=== PATIENT | male | born 1935 | race Caucasian/White ===

== ENCOUNTER → 2017-09-09 08:46 | Outpatient (CLI) | payer MEDICARE, SELFPAY ==
[2017-09-09 12:10] LABS: Absolute Lymphocyte Count 1.85 X10^3/ul (0.83-4.51); Absolute Neutrophil Count 5.1 X10^3/uL (2.0-7.7); Basophil# 0.04 X10^3/uL; Basophil% 0.5 % (0-1); Eosinophil# 0.96 X10^3/uL; Eosinophils% 11.2 % (0-5); Hematocrit 43.4 % (40-54); Hemoglobin 14.5 g/dl (13.0-16.5); Lymphocyte # 1.85 X10^3/ul (4.0); Lymphocyte % 21.6 % (19-41); Mean Corp Hgb Conc 33.4 g/gl (32-36); Mean Corpuscular Hgb 31.1 pg (27.0-32.0); Mean Corpuscular Volume 93.1 fL (80-94); Mean Platelet Vol. 11.8 fl (6.2-12.0); Monocyte# 0.59 X10^3/uL; Monocyte% 6.9 % (0-10); Neutrophil # 5.11 X10^3/uL (2.7-7.7); Neutrophil % 59.7 % (47-70); Platelet Count 233 K/mm3 (150-450); RBC Distribution Width CV 13.2 % (11.6-14.6); Red Blood Count 4.66 M/mm3 (4.6-6.2); White Blood Count 8.6 K/mm3 (4.4-11.0)
[2017-09-09 12:15] LABS: POSITIVE COUNT NO; POSITIVE DIFFERENTIAL NO; POSITIVE MORPHOLOGY NO
[2017-09-09 12:19] LABS: AST(SGOT) 22 U/L (15-37); Alanine Aminotransfer ALT/SGPT 26 U/L (16-61); Albumin, Serum 3.8 g/dL (3.2-5.0); Alkaline Phosphatase 121 U/L (45-117); Anion Gap 7 (5-15); BUN 43 mg/dL (7-18); BUN/Creat Ratio 22.2 RATIO (10-20); Calcium,Total 9.1 mg/dL (8.5-10.1); Chloride 103 mmol/L (98-107); Creatinine, Serum 1.94 mg/dL (0.70-1.30); EST Glomerular Filtration Rate 35 mL/min (>60); Est Glom Filt Rate - Afr Amer 43 mL/min (>60); Glucose 212 mg/dL (74-106); Potassium 4.4 mmol/L (3.5-5.1); Protein, Total 7.8 g/dL (6.4-8.2); Sodium Level 137 mmol/L (136-145)
== END ==
PROVIDERS: Family Provider Family Medicine; PCP Family Medicine; Visit Provider Family Medicine
DX: I12.9 Hypertensive chronic kidney disease with stage 1 through stage 4 chronic kidney disease, or unspecified chronic kidney disease (principal); N18.9 Chronic kidney disease, unspecified; E11.9 Type 2 diabetes mellitus without complications
CPT/HCPCS: 36415; 80053; 84550; 85025

== ENCOUNTER → 2017-09-23 09:13 | Outpatient (CLI) | payer MEDICARE, SELFPAY ==
[2017-09-23 13:10] LABS: Anion Gap 8 (5-15); BUN 21 mg/dL (7-18); BUN/Creat Ratio 14.3 RATIO (10-20); Calcium,Total 8.9 mg/dL (8.5-10.1); Chloride 104 mmol/L (98-107); Creatinine, Serum 1.47 mg/dL (0.70-1.30); EST Glomerular Filtration Rate 49 mL/min (>60); Est Glom Filt Rate - Afr Amer 59 mL/min (>60); Glucose 271 mg/dL (74-106); Potassium 3.9 mmol/L (3.5-5.1); Sodium Level 138 mmol/L (136-145)
== END ==
PROVIDERS: Family Provider Family Medicine; PCP Family Medicine; Visit Provider Family Medicine
DX: N18.9 Chronic kidney disease, unspecified (principal)
CPT/HCPCS: 36415; 80048

== ENCOUNTER → 2018-03-05 11:06 | Outpatient (CLI) | payer MEDICARE, SELFPAY ==
[2018-03-05 12:27] LABS: Absolute Lymphocyte Count 1.72 X10^3/ul (0.83-4.51); Absolute Neutrophil Count 4.9 X10^3/uL (2.0-7.7); Basophil# 0.03 X10^3/uL; Basophil% 0.4 % (0-1); Eosinophils% 2.8 % (0-5); Hemoglobin 13.8 g/dl (13.0-16.5); Lymphocyte # 1.72 X10^3/ul (4.0); Lymphocyte % 23.8 % (19-41); Mean Corp Hgb Conc 33.7 g/gl (32-36); Mean Corpuscular Hgb 31.4 pg (27.0-32.0); Mean Corpuscular Volume 93.2 fL (80-94); Mean Platelet Vol. 11.7 fl (6.2-12.0); Monocyte# 0.41 X10^3/uL; Monocyte% 5.7 % (0-10); Neutrophil # 4.85 X10^3/uL (2.7-7.7); Neutrophil % 67.2 % (47-70); POSITIVE COUNT NO; POSITIVE DIFFERENTIAL NO; POSITIVE MORPHOLOGY NO; Platelet Count 200 K/mm3 (150-450); RBC Distribution Width CV 12.5 % (11.6-14.6); White Blood Count 7.2 K/mm3 (4.4-11.0)
[2018-03-05 12:39] LABS: Anion Gap 13 (5-15); BUN 24 mg/dL (7-18); BUN/Creat Ratio 17.1 RATIO (10-20); Calcium,Total 8.9 mg/dL (8.5-10.1); Chloride 103 mmol/L (98-107); EST Glomerular Filtration Rate 51 mL/min (>60); Est Glom Filt Rate - Afr Amer 62 mL/min (>60); Glucose 207 mg/dL (74-106); Potassium 3.9 mmol/L (3.5-5.1); Sodium Level 142 mmol/L (136-145)
[2018-03-05 12:46] LABS: Vitamin B12 281 pg/mL (211-911)
== END ==
PROVIDERS: Family Provider Family Medicine; PCP Family Medicine; Visit Provider Family Medicine
DX: I12.9 Hypertensive chronic kidney disease with stage 1 through stage 4 chronic kidney disease, or unspecified chronic kidney disease (principal); E11.22 Type 2 diabetes mellitus with diabetic chronic kidney disease; N18.9 Chronic kidney disease, unspecified; G62.9 Polyneuropathy, unspecified
CPT/HCPCS: 36415; 80048; 82607; 85025

== ENCOUNTER 2018-03-19 08:00 | Outpatient (RCR) | payer MEDICARE, SELFPAY ==
--- NOTE | 2018-03-10 10:30 | HP.PTEVAL_ITS ---
Patient's Visit Information ZOFIA TOLEDO is a 82 year old M referred to Physical Therapy by Ryder Jessica MD with a diagnosis of LACK OF COORDINATION. Date of Evaluation: 03/10/18 Physical Therapist: Guanaco Castelan PT, - Visit Plan Frequency: 2x /Week Duration: 4 Weeks Plan: PROGRESSIVE BALANCE TRAINING,FUNCTIONAL STRENGTHENING,PRE'S BLE,LE FLEXABILITY - Subjective Subjective: This 82 y/o male presents to physical therapy for decrease balance and strength. Patient last episode falling on uneven ground working in yard. Also ,noticed weakness in legs. Denies pain or parathesia/tingling. Patient has difficulty with steps. Patient overall strength affects QOL and housework tasks. Patient seen DR karina PT. Patient works out at gym. SOCIAL: . VOCATION: retired - Objective POSTURE: mild foward posture. GAIT: ambulates with normal mallika reciprocal pattern. STAIRS: alternating with rail. BALANCE: good-. MMT: quads/hams/hip flexion 4-/5,ab4 4-/5,ankle 4/5. FLEXABLITY: hams mod tight,piriforms mod tight. SLS : 5 SECONDS EA LEG - Balance Scores Functional Gait Assessment Score: 18 % Disability: 40.0000 CATSIB Score (Max score 120 seconds): 75 - Goals Goal 1:: Indepoendant with HEP Goal Time Frame: 4-6 Weeks Goal 2:: Improve functional gait assessment score by 5 points to decrease risk of falling Goal Time Frame: 4-6 Weeks Goal 3:: Patient improve CATSIB SCORE BY 5-10 points to decrease risk of falling Goal Time Frame: 4-6 Weeks Goal 4:: Patienty increase strength BLE to 4/5 to imprpove function and strength for ADL'S Goal Time Frame: 4-6 Weeks Goal 5:: Patient to improve LFES SCORE BY 5-10 points ti improve QOL Goal Time Frame: 4-6 Weeks - Rehabilitation Potential Physical Therapy Diagnosis: This patientr has balance and strength deficits impairs ADLS' and risk of falls thus benifit from skilled PT Rehabilitation Potential: Good - Anticipated Interventions Patient/Client Instruction: Educate patient on: Condition, Plan of Care For the Purpose of:: To improve muscle performance and motor function, To improve ability to perform ADL's, To increase tolerance to activity/condition/ position, To improve performance and independence with ADL's, To improve ability of physical actions for home/community/work/leisure, To improve gait and locomotor functions, To increase flexibility/ROM, To improve endurance, To improve balance, To improve safety with gait, To improve ability to perform tasks related to life management Therapeutic Exercise to Include: Strength training, Endurance training, Balance training, Flexibilty training, Gait and locomotor training Comment: LE For the Purpose of:: To improve muscle performance and motor function, To improve ability to perform ADL's, To increase tolerance to activity/condition/ position, To improve performance and independence with ADL's, To improve ability of physical actions for home/community/work/leisure, To improve gait and locomotor functions, To increase flexibility/ROM, To improve endurance, To improve balance, To improve ability to perform tasks related to life management Thank you for the opportunity to evaluate your patient. For Medicare and Medicare HMO plans, please review the plan of care and approve it. It will need to be FAXED BACK to us at [phone] for Medicare purposes. Please let me know if there are questions or concerns regarding this plan of care. Physician Signature: Date:
--- NOTE | 2018-06-21 13:42 | HP.PTDCNRP_ITS ---
HP - Discharge Summary (1) - Patient Information ZOFIA TOLEDO was seen in my office for initial evaluation on 03/10/18. The following Plan of Care was established for this patient: Initial Frequency: 2x /Week Initial Duration: 4 Weeks - Anticipated Interventions Patient/Client Instruction: Educate patient on: Condition, Plan of Care For the Purpose of:: To improve muscle performance and motor function, To improv e ability to perform ADL's, To increase tolerance to activity/condition/position, To improve performance and independence with ADL's, To improve ability of physical actions for home/community/work/leisure, To improve gait and locomotor functions, To increase flexibility/ROM, To improve endurance, To improve balance, To improve safety with gait, To improve ability to perform tasks related to life management Therapeutic Exercise to Include: Strength training, Endurance training, Balance training, Flexibilty training, Gait and locomotor training For the Purpose of:: To improve muscle performance and motor function, To improve ability to perform ADL's, To increase tolerance to activity/condition/position, To improve performance and independence with ADL's, To improve ability of physical actions for home/community/work/leisure, To improve gait and locomotor functions, To increase flexibility/ROM, To improve endurance, To improve balance, To improve ability to perform tasks related to life management This patient was last seen in our office 03/19/18. Pertinent comments regarding their Physical therapy will appear below: This patient seen for PT hip pain focusing on strengthening ,ROM modalities . Patient progressing well decreasing pain for function,thus is d/c HEP. At this point I will be discontinuing this patient from physical therapy. I would be happy to see this patient again in the future if found appropriate by the physician. Thank you! Guanaco Castelan, PT,
== END 2018-03-19 19:00 | disposition home or self-care (01) ==
LOC: PT 08:00
PROVIDERS: Family Provider Family Medicine; PCP Family Medicine; Visit Provider Family Medicine
DX: R27.8 Other lack of coordination (principal)
CPT/HCPCS: 97110; 97162

== ENCOUNTER → 2018-05-31 08:25 | Outpatient (CLI) | payer MEDICARE, SELFPAY ==
[2018-05-31 12:40] LABS: Absolute Lymphocyte Count 1.82 X10^3/ul (0.83-4.51); Absolute Neutrophil Count 5.5 X10^3/uL (2.0-7.7); Basophil# 0.04 X10^3/uL; Basophil% 0.5 % (0-1); Eosinophil# 0.33 X10^3/uL; Hematocrit 41.4 % (40-54); Hemoglobin 13.9 g/dl (13.0-16.5); Lymphocyte # 1.82 X10^3/ul (4.0); Lymphocyte % 22.1 % (19-41); Mean Corp Hgb Conc 33.6 g/gl (32-36); Mean Corpuscular Hgb 31.1 pg (27.0-32.0); Mean Corpuscular Volume 92.6 fL (80-94); Mean Platelet Vol. 11.6 fl (6.2-12.0); Monocyte# 0.57 X10^3/uL; Monocyte% 6.9 % (0-10); Neutrophil # 5.45 X10^3/uL (2.7-7.7); Neutrophil % 66.3 % (47-70); Platelet Count 205 K/mm3 (150-450); RBC Distribution Width CV 12.5 % (11.6-14.6); RBC Distribution Width SD 41.8 fl (35.1-43.9); Red Blood Count 4.47 M/mm3 (4.6-6.2); White Blood Count 8.2 K/mm3 (4.4-11.0)
[2018-05-31 12:54] LABS: POSITIVE COUNT NO; POSITIVE DIFFERENTIAL NO; POSITIVE MORPHOLOGY NO
[2018-05-31 13:02] LABS: Anion Gap 12 (5-15); BUN 28 mg/dL (7-18); BUN/Creat Ratio 20.9 RATIO (10-20); Chloride 104 mmol/L (98-107); Creatinine, Serum 1.34 mg/dL (0.70-1.30); EST Glomerular Filtration Rate 54 mL/min (>60); Est Glom Filt Rate - Afr Amer 65 mL/min (>60); Glucose 194 mg/dL (74-106); Potassium 3.8 mmol/L (3.5-5.1); Sodium Level 140 mmol/L (136-145); Vitamin B12 > 2000 pg/mL (211-911)
== END ==
PROVIDERS: Family Provider Family Medicine; PCP Family Medicine; Visit Provider Family Medicine
DX: E53.8 Deficiency of other specified B group vitamins (principal); I10 Essential (primary) hypertension
CPT/HCPCS: 36415; 80048; 82607; 85025

== ENCOUNTER → 2018-09-13 08:41 | Outpatient (CLI) | payer MEDICARE, SELFPAY ==
[2018-06-29 09:00] VITALS: BMI 22.5
[2018-09-13 12:28] LABS: Absolute Neutrophil Count 6.1 X10^3/uL (2.0-7.7); Basophil# 0.05 X10^3/uL; Basophil% 0.6 % (0-1); Eosinophils% 2.3 % (0-5); Hemoglobin 13.3 g/dl (13.0-16.5); Lymphocyte % 20.3 % (19-41); Mean Corp Hgb Conc 32.4 g/gl (32-36); Mean Corpuscular Hgb 30.9 pg (27.0-32.0); Mean Corpuscular Volume 95.1 fL (80-94); Mean Platelet Vol. 11.7 fl (6.2-12.0); Monocyte# 0.65 X10^3/uL; Monocyte% 7.3 % (0-10); Neutrophil # 6.14 X10^3/uL (2.7-7.7); Neutrophil % 69.4 % (47-70); Platelet Count 199 K/mm3 (150-450); RBC Distribution Width CV 12.9 % (11.6-14.6); RBC Distribution Width SD 43.6 fl (35.1-43.9); Red Blood Count 4.31 M/mm3 (4.6-6.2); White Blood Count 8.9 K/mm3 (4.4-11.0)
[2018-09-13 12:29] LABS: POSITIVE COUNT NO; POSITIVE DIFFERENTIAL NO; POSITIVE MORPHOLOGY NO
[2018-09-13 13:22] LABS: Anion Gap 8 (5-15); BUN 29 mg/dL (7-18); BUN/Creat Ratio 21.6 RATIO (10-20); Chloride 107 mmol/L (98-107); Creatinine, Serum 1.34 mg/dL (0.70-1.30); EST Glomerular Filtration Rate 54 mL/min (>60); Est Glom Filt Rate - Afr Amer 65 mL/min (>60); Glucose 204 mg/dL (74-106); Sodium Level 139 mmol/L (136-145); Thyroid Stim Hormone (TSH) 2.07 uIU/mL (0.358-3.74); Uric Acid 4.3 mg/dL (3.5-7.2)
== END ==
PROVIDERS: Family Provider Family Medicine; PCP Family Medicine; Visit Provider Family Medicine
DX: I12.9 Hypertensive chronic kidney disease with stage 1 through stage 4 chronic kidney disease, or unspecified chronic kidney disease (principal); E11.22 Type 2 diabetes mellitus with diabetic chronic kidney disease; N18.9 Chronic kidney disease, unspecified; M10.9 Gout, unspecified
CPT/HCPCS: 36415; 80048; 84443; 84550; 85025

== ENCOUNTER → 2019-04-04 | Outpatient (CLI) | payer MEDICARE, SELFPAY ==
[2018-06-29 09:00] VITALS: BMI 22.5
[2019-04-04 12:28] LABS: Absolute Neutrophil Count 4.9 X10^3/uL (2.0-7.7); Basophil# 0.05 X10^3/uL; Basophil% 0.7 % (0-1); Eosinophil# 0.22 X10^3/uL; Hematocrit 41.4 % (40-54); Hemoglobin 13.6 g/dL (13.0-16.5); Lymphocyte % 22.8 % (19-41); Mean Corp Hgb Conc 32.9 g/dL (32-36); Mean Corpuscular Hgb 30.9 pg (27.0-32.0); Mean Corpuscular Volume 94.1 fL (80-94); Mean Platelet Vol. 11.5 fl (6.2-12.0); Monocyte# 0.56 X10^3/uL; Monocyte% 7.5 % (0-10); NRBC Flagged by Analyzer 0 % (0-5); Neutrophil # 4.89 X10^3/uL (2.7-7.7); Neutrophil % 65.6 % (47-70); Platelet Count 192 K/mm3 (150-450); RBC Distribution Width CV 12.2 % (11.6-14.6); RBC Distribution Width SD 42.6 fl (35.1-43.9); White Blood Count 7.5 K/mm3 (4.4-11.0)
[2019-04-04 12:52] LABS: Anion Gap 5 (5-15); BUN 29 mg/dL (7-18); BUN/Creat Ratio 21.6 RATIO (10-20); Calcium,Total 9.2 mg/dL (8.5-10.1); Chloride 104 mmol/L (98-107); Creatinine, Serum 1.34 mg/dL (0.70-1.30); EST Glomerular Filtration Rate 54 mL/min (>60); Est Glom Filt Rate - Afr Amer 65 mL/min (>60); Glucose 201 mg/dL (74-106); Sodium Level 136 mmol/L (136-145)
[2019-04-04 12:59] LABS: Vitamin B12 851 pg/mL (211-911)
== END | disposition home or self-care (01) ==
PROVIDERS: Family Provider Family Medicine; PCP Family Medicine; Visit Provider Family Medicine
DX: I10 Essential (primary) hypertension (principal); E53.8 Deficiency of other specified B group vitamins
CPT/HCPCS: 36415; 80048; 82607; 85025

== ENCOUNTER → 2020-03-16 10:05 | Outpatient (CLI) | payer MEDICARE, SELFPAY ==
[2019-06-28 08:05] VITALS: BMI 22.9
[2020-03-16 12:28] LABS: Absolute Lymphocyte Count 2.11 X10^3/uL (0.83-4.51); Absolute Neutrophil Count 6.1 X10^3/uL (2.0-7.7); Basophil# 0.06 X10^3/uL; Basophil% 0.7 % (0-1); Eosinophil# 0.23 X10^3/uL; Eosinophils% 2.5 % (0-5); Hematocrit 39.3 % (40-54); Hemoglobin 12.8 g/dL (13.0-16.5); Lymphocyte # 2.11 X10^3/ul (4.0); Mean Corp Hgb Conc 32.6 g/dL (32-36); Mean Corpuscular Hgb 30.8 pg (27.0-32.0); Mean Corpuscular Volume 94.7 fL (80-94); Mean Platelet Vol. 11.7 fl (6.2-12.0); Monocyte# 0.63 X10^3/uL; Monocyte% 6.9 % (0-10); NRBC Flagged by Analyzer 0 % (0-5); Neutrophil # 6.08 X10^3/uL (2.7-7.7); Neutrophil % 66.2 % (47-70); Platelet Count 227 K/mm3 (150-450); RBC Distribution Width CV 12.6 % (11.6-14.6); RBC Distribution Width SD 43.8 fl (35.1-43.9); Red Blood Count 4.15 M/mm3 (4.6-6.2); White Blood Count 9.2 K/mm3 (4.4-11.0)
[2020-03-16 12:48] LABS: Anion Gap 6 (5-15); BUN 32 mg/dL (7-18); BUN/Creat Ratio 21.3 RATIO (10-20); Calcium,Total 9.3 mg/dL (8.5-10.1); Chloride 103 mmol/L (98-107); EST Glomerular Filtration Rate 47 mL/min (>60); Est Glom Filt Rate - Afr Amer 57 mL/min (>60); Glucose 189 mg/dL (74-106); Sodium Level 136 mmol/L (136-145); Thyroid Stim Hormone (TSH) 2.11 uIU/mL (0.358-3.74); Uric Acid 3.6 mg/dL (3.5-7.2)
[2020-03-16 15:26] LABS: Ferritin 98 ng/mL (26-388); Iron 84 ug/dL (65-175)
== END ==
PROVIDERS: PCP Family Medicine; Visit Provider Family Medicine
DX: E11.22 Type 2 diabetes mellitus with diabetic chronic kidney disease (principal); N18.9 Chronic kidney disease, unspecified; M10.9 Gout, unspecified; D64.9 Anemia, unspecified
CPT/HCPCS: 36415; 80048; 82728; 83540; 84443; 84550; 85025

== ENCOUNTER → 2020-04-27 09:11 | Outpatient (CLI) | payer MEDICARE, SELFPAY ==
[2019-06-28 08:05] VITALS: BMI 22.9
[2020-04-27 12:23] LABS: Absolute Lymphocyte Count 1.68 X10^3/uL (0.83-4.51); Absolute Neutrophil Count 5.7 X10^3/uL (2.0-7.7); Basophil# 0.07 X10^3/uL; Basophil% 0.8 % (0-1); Eosinophil# 0.26 X10^3/uL; Eosinophils% 3.1 % (0-5); Hemoglobin 12.4 g/dL (13.0-16.5); Lymphocyte # 1.68 X10^3/ul (4.0); Lymphocyte % 20.3 % (19-41); Mean Corp Hgb Conc 31.8 g/dL (32-36); Mean Corpuscular Hgb 30.2 pg (27.0-32.0); Mean Corpuscular Volume 94.9 fL (80-94); Mean Platelet Vol. 11.3 fl (6.2-12.0); Monocyte# 0.54 X10^3/uL; Monocyte% 6.5 % (0-10); NRBC Flagged by Analyzer 0 % (0-5); Neutrophil # 5.68 X10^3/uL (2.7-7.7); Neutrophil % 68.9 % (47-70); Platelet Count 221 K/mm3 (150-450); RBC Distribution Width CV 12.7 % (11.6-14.6); RBC Distribution Width SD 44.2 fl (35.1-43.9); Red Blood Count 4.11 M/mm3 (4.6-6.2); White Blood Count 8.3 K/mm3 (4.4-11.0)
[2020-04-27 12:47] LABS: Anion Gap 4 (5-15); BUN 29 mg/dL (7-18); Calcium,Total 8.9 mg/dL (8.5-10.1); Chloride 104 mmol/L (98-107); Creatinine, Serum 1.53 mg/dL (0.70-1.30); EST Glomerular Filtration Rate 46 mL/min (>60); Est Glom Filt Rate - Afr Amer 56 mL/min (>60); Glucose 260 mg/dL (74-106); Iron 66 ug/dL (65-175); Potassium 4.2 mmol/L (3.5-5.1); Sodium Level 136 mmol/L (136-145)
[2020-04-27 12:51] LABS: Vitamin B12 449 pg/mL (211-911)
== END ==
PROVIDERS: PCP Family Medicine; Visit Provider Family Medicine
DX: E53.8 Deficiency of other specified B group vitamins (principal); N18.9 Chronic kidney disease, unspecified; D64.9 Anemia, unspecified
CPT/HCPCS: 36415; 80048; 82607; 83540; 85025

== ENCOUNTER → 2020-08-10 10:32 | Outpatient (CLI) | payer MEDICARE, SELFPAY ==
[2020-08-10 08:01] VITALS: BMI 22.2
[2020-08-10 11:22] LABS: AST(SGOT) 22 U/L (15-37); Alanine Aminotransfer ALT/SGPT 30 U/L (16-61); Albumin, Serum 3.7 g/dL (3.2-5.0); Alkaline Phosphatase 88 U/L (45-117); Cholesterol 119 mg/dL (200); High Density Lipoprotein 41 mg/dL; Protein, Total 7.7 g/dL (6.4-8.2); Triglycerides 109 mg/dL; Very Low Density Lipoprotein 22 mg/dL (5-40)
== END ==
PROVIDERS: PCP Family Medicine; Referring Provider Internal Medicine Cardiovascular Disease; Visit Provider Internal Medicine Cardiovascular Disease
DX: I10 Essential (primary) hypertension (principal); E78.5 Hyperlipidemia, unspecified
CPT/HCPCS: 36415; 80061; 80076

== ENCOUNTER → 2020-10-05 13:38 | Outpatient (CLI) | payer MEDICARE, SELFPAY ==
[2020-08-10 08:01] VITALS: BMI 22.2
[2020-10-05 15:10] LABS: Absolute Lymphocyte Count 2.37 X10^3/uL (0.83-4.51); Absolute Neutrophil Count 5.1 X10^3/uL (2.0-7.7); Basophil# 0.06 X10^3/uL; Basophil% 0.7 % (0-1); Eosinophil# 0.23 X10^3/uL; Eosinophils% 2.8 % (0-5); Hematocrit 38.1 % (40-54); Hemoglobin 12.3 g/dL (13.0-16.5); Lymphocyte # 2.37 X10^3/ul (4.0); Lymphocyte % 28.5 % (19-41); Mean Corp Hgb Conc 32.3 g/dL (32-36); Mean Corpuscular Hgb 30.8 pg (27.0-32.0); Mean Corpuscular Volume 95.3 fL (80-94); Mean Platelet Vol. 10.7 fl (6.2-12.0); Monocyte# 0.52 X10^3/uL; Monocyte% 6.3 % (0-10); NRBC Flagged by Analyzer 0 % (0-5); Neutrophil # 5.11 X10^3/uL (2.7-7.7); Neutrophil % 61.5 % (47-70); Platelet Count 237 K/mm3 (150-450); RBC Distribution Width SD 45.3 fl (35.1-43.9); White Blood Count 8.3 K/mm3 (4.4-11.0)
[2020-10-05 15:36] LABS: AST(SGOT) 34 U/L (15-37); Alanine Aminotransfer ALT/SGPT 52 U/L (16-61); Albumin, Serum 3.6 g/dL (3.2-5.0); Alkaline Phosphatase 98 U/L (45-117); Anion Gap 6 (5-15); BUN 36 mg/dL (7-18); Calcium,Total 8.8 mg/dL (8.5-10.1); Chloride 102 mmol/L (98-107); EST Glomerular Filtration Rate 47 mL/min (>60); Est Glom Filt Rate - Afr Amer 57 mL/min (>60); Globulin 3.7 g/dL (2.2-4.2); Glucose 169 mg/dL (74-106); Protein, Total 7.3 g/dL (6.4-8.2); Sodium Level 137 mmol/L (136-145); Thyroid Stim Hormone (TSH) 1.78 uIU/mL (0.358-3.74); Uric Acid 3.5 mg/dL (3.5-7.2)
== END ==
PROVIDERS: PCP Family Medicine; Referring Provider Family Medicine; Visit Provider Family Medicine
DX: I12.9 Hypertensive chronic kidney disease with stage 1 through stage 4 chronic kidney disease, or unspecified chronic kidney disease (principal); N18.9 Chronic kidney disease, unspecified; M10.9 Gout, unspecified
CPT/HCPCS: 36415; 80053; 84443; 84550; 85025

== ENCOUNTER 2021-08-20 09:49 | Outpatient (CLI) | payer MEDICARE, SELFPAY ==
--- NOTE | 2021-08-20 09:51 | CDU_ITS ---
Reason For Study: Carotid bruit Rt. Velocities/BP Lt. Velocities/BP Prox CCA 115.6/9.7 cm/sec. Prox CCA 99.7/10.2 cm/sec. Mid CCA 93.7/11.5 cm/sec. Mid CCA 90/13.3 cm/sec. Dist CCA 74.1/10.2 cm/sec. Dist CCA 90.1/13.3 cm/sec. Prox ICA 56.4/10.2 cm/sec. Prox ICA 60.5/9 cm/sec. Mid ICA 71.6/12.6 cm/sec. Mid ICA 79/13.9 cm/sec. Dist ICA 59.7/9.1 cm/sec. Dist ICA 91.3/12.6 cm/sec. Rt. ICA/CCA = 0.76. Lt. ICA/CCA = 1.01. Prox ECA 130.1/9.4 cm/sec. Prox ECA 182/74 cm/sec. Lt. Vert. 45.4/12.4 cm/sec. Right Extracranial There is intimal thickening but no significant atherosclerotic plaque noted in the right common carotid artery. There is heterogeneous, irregular atherosclerotic plaque noted in the right internal carotid artery. There is intimal thickening but no significant atherosclerotic plaque noted in the right external carotid artery. Retrograde flow noted in the right vertebral artery. Left Extracranial There is intimal thickening but no significant atherosclerotic plaque noted in the left common carotid artery. There is homogeneous, irregular atherosclerotic plaque noted in the left internal carotid artery. The left internal carotid artery is very tortuous. There is intimal thickening but no significant atherosclerotic plaque noted in the left external carotid artery. Antegrade flow is noted in the left vertebral artery. Procedure Carotid Duplex 27506. This is a Carotid Duplex examination using B-mode, color flow and specral Doppler. Exam performed in department. VL/Carotid Duplex Ultrasound Interpretation Summary Irregular calcific plaque at the proximal right internal carotid artery with le ss than 50% stenosis Less than 50% stenosis right ex internal carotid artery Retrograde flow noted within the right vertebral artery Mild irregular plaque at the proximal left internal carotid artery with less th an 50% stenosis. Tortuosity of the left internal carotid artery noted. Less than 50% stenosis left external carotid artery Antegrade flow left vertebral artery The retrograde flow of the right vertebral artery seems to be new from the prev ious examination of September 11, 2009 Ordering Physician: Leslee Ang Referring Physician: Ryder Jessica Performed By: Carmel Lees RVT
== END 2021-08-20 23:59 | disposition home or self-care (01) ==
LOC: CVS 09:50
PROVIDERS: PCP Family Medicine; Referring Provider Physician Assistant Medical; Visit Provider Physician Assistant Medical
DX: R09.89 Other specified symptoms and signs involving the circulatory and respiratory systems (principal)
CPT/HCPCS: 93880

== ENCOUNTER 2022-02-15 02:59 | Inpatient (IN) | payer MEDICARE, SELFPAY ==
[2022-02-15] VITALS (37 sets, daily range): BP systolic 95–130; BP diastolic 56–83; PULSE 81–104; RESP 12–28; TEMP 35.9–36.7; O2SAT 86–98; BMI 22.4; BMI 21.1
--- NOTE | 2022-02-15 03:05 | EKG12_ITS ---
Test Reason : CP Blood Pressure : / mmHG Vent. Rate : 092 BPM Atrial Rate : 092 BPM P-R Int : 276 ms QRS Dur : 090 ms QT Int : 352 ms P-R-T Axes : 068 076 210 degrees QTc Int : 435 ms Sinus rhythm with 1st degree A-V block ST & T wave abnormality, consider lateral ischemia Abnormal ECG Confirmed by CHRISTEN GONZALEZ, CHANDA ([id number]), brands editor THIEN BUTLER ([id number]) on 02/17/2022 1:12:16 PM Referred By: NAYA Confirmed By:CHANDA VELÁSQUEZ MD
--- NOTE | 2022-02-15 03:24 | CT_ITS ---
STUDY: CTA CHEST REASON FOR EXAM: Male, 86 years old. hypoxia RADIATION DOSAGE (If Supplied By Facility): CTDIvol = ( 15.435 ) mGy, DLP = ( 431.31 ) mGycm TECHNIQUE: The examination was performed with the intravenous administration of IV 100mL Isovue-370. Post-processing of the angiographic images was performed, with multiplanar reformation and 3D reconstruction. Individualized dose optimization techniques were used for this CT. COMPARISON: None. FINDINGS: Normal enhancement of the main pulmonary artery and right and left pulmonary arteries. Normal enhancement of the bilateral peripheral pulmonary arteries. There is no demonstrated pulmonary embolism. Normal thoracic aorta and visualized great vessels. There is no demonstrated aortic dissection. Normal heart and pericardium. Normal mediastinum. Normal hilar regions. Normal visualized trachea and bronchi. The lungs are well expanded. Diffuse interstitial prominence throughout the lungs compatible with pulmonary edema as well as bibasilar patchy airspace disease and small effusions. Normal chest wall structures. Normal osseous structures. Normal visualized upper abdomen. CT/CTA Chest W/WO Contrast IMPRESSION: 1. Negative for pulmonary embolism 2. Diffuse interstitial edema; bibasilar patchy airspace disease and small effusions Electronically Signed: David Downs DO at 5:10 EDT ,
--- NOTE | 2022-02-15 03:27 | EDS_ITS ---
HPI History of Present Illness Chief Complaint: Hypotension Narrative Narrative: Patient is an 86-year-old male with past medical history of hypertension hyperlipidemia and BPH. He states that over the past 3 days he has noticed some intermittent chest discomfort along the left chest with mild/normal activity. He states they will resolve when he rests. He states this evening around midnight he developed the same discomfort but the symptoms have been persistent despite sitting at rest and therefore he comes in for evaluation. [facility] Medical History Diabetes mellitus type II, controlled Essential (primary) hypertension Hyperlipidemia Irritable bowel syndrome Home Medications allopurinol 300 mg tablet 300 mg PO QDAY 06/29/17 [History Last Taken Unknown] aspirin 81 mg tablet,delayed release (Adult Aspirin Regimen) 81 mg PO QDAY 06/29/17 [History Last Taken Unknown] atenolol 50 mg tablet 50 mg PO QDAY 06/29/17 [History Last Taken Unknown] dicyclomine 10 mg capsule 10 mg PO Q8H PRN Pain 06/29/17 [History Last Taken Unknown] tamsulosin 0.4 mg capsule (Flomax) 0.4 mg PO QDAY 06/29/17 [History Last Taken Unknown] sitagliptin 50 mg-metformin 500 mg tablet (Janumet) 1 tab PO BID 06/29/18 [History Last Taken Unknown] finasteride 5 mg tablet 5 mg PO DAILY 08/10/20 [History Last Taken Unknown] latanoprost 0.005 % eye drops 1 drp ophthalmic (eye) DAILY 08/10/20 [History Last Taken Unknown] simvastatin 40 mg tablet 20 mg PO QHS 08/06/21 [History Last Taken Unknown] amlodipine 10 mg tablet 10 mg PO DAILY #90 tabs 08/22/21 [Rx Last Taken Unknown] Allergy/AdvReac Type Severity Reaction Status Date / Time No Known Allergies Allergy Verified 02/15/22 03:07 Family History Mother , age 86 after hip fx, had CVA CVA (cerebral vascular accident) Social History Smoking Status: Never smoker ROS ROS ED Constitutional Constitutional ED: Denies chills or fever(s) ENT ENT ED: Denies sore throat Cardiovascular Cardiovascular: Reports chest pain; Denies palpitations or racing heartbeat Respiratory/Chest Respiratory/Chest: Denies cough or dyspnea Gastrointestinal Gastrointestinal: Denies abdominal pain, diarrhea, nausea or vomiting Genitourinary Genitourinary ED: Denies dysuria Musculoskeletal Musculoskeletal: Reports other Details: Positive leg swelling ; Denies myalgias Integumentary Denies rash Neurologic Neurologic: Denies headache(s) Hematologic/Lymphatic Hematologic/Lymphatic: Denies easy bleeding or easy bruising EXAM Physical Exam Const Vital Signs: 02/15/22 03:01 02/15/22 03:07 02/15/22 03:12 Temperature 97.7 F L Temperature Source Oral Pulse Rate 95 Respiratory Rate 20 H Respiratory Effort Normal Respiratory Depth Respiratory Pattern Normal Blood Pressure 95/68 Blood Pressure Mean 77 Pulse Ox 86 90 Oxygen Delivery Method Room Air Nasal Cannula Oxygen Flow Rate (L/min) 6 Fraction of Inspired Oxygen (FIO2) 02/15/22 03:41 02/15/22 03:33 02/15/22 03:33 Temperature Temperature Source Pulse Rate 91 Respiratory Rate 20 H 20 H Respiratory Effort Normal Respiratory Depth Normal Respiratory Pattern Normal Normal Blood Pressure 95/65 Blood Pressure Mean 75 Pulse Ox 93 90 Oxygen Delivery Method High Flow Nasal Cannula Oxygen Flow Rate (L/min) 15 8 Fraction of Inspired Oxygen (FIO2) 02/15/22 04:31 02/15/22 04:23 02/15/22 05:17 Temperature Temperature Source Pulse Rate 91 94 93 Respiratory Rate 20 H 20 H 16 Respiratory Effort Respiratory Depth Respiratory Pattern Normal Blood Pressure 111/72 119/76 Blood Pressure Mean 85 90 Pulse Ox 96 94 97 Oxygen Delivery Method Bi-pap Bi-pap Oxygen Flow Rate (L/min) Fraction of Inspired Oxygen (FIO2) 70 Positive well nourished and well developed General Appearance ED: well developed HEENT Reports moist mucous membranes Eyes PERRL and EOMs intact bilaterally Neck supple and no JVD Resp normal respiratory effort Resp Narrative: Breath sounds are diminished throughout with diffuse rhonchi present. No nasal flaring retractions tachypnea or accessory muscle use. Patient is able to speak in full sentences without dyspnea Cardio regular rate and regular rhythm Rate: other Other Details: Radial pulses are plus 2 out of 4 bilaterally they are equal and Carotid pulses are equal as well GI normal to inspection, nondistended, normoactive bowel sounds, non-tender and non-distended GI Narrative: No voluntary guarding no rigidity no pulsatile mass Auscultation: normoactive bowel sounds Palpation: soft Extremity Extremity Narrative: +2 pitting edema to the right lower extremity with +1 pitting edema to the left lower extremity. Patient states the swelling in his legs is normal and there is negative Homans' sign bilaterally Neuro oriented x3 and CN's II-XII intact bilaterally Sensorium / Orientation: alert Psych mental status grossly normal Skin no rashes or lesions noted MDM MDM MDM Narrative Medical decision making narrative: Patient arrived to the ER with a soft blood pressure of 95/68 but not truly hypotensive. However he he was only satting 85% on room air and states he has no history of lung disorder or need for supplemental oxygen. He does have risk factors for cardiovascular disease based on his age and history of high blood pressure high cholesterol and diabetes. Therefore with his intermittent chest discomfort over the past 3 days which is now more persistent/constant and EKG showing some depression concerning for ischemia and his hypoxia a cardiac work- up with CTA was ordered. CTA revealed interstitial edema but no pulmonary embolus or dissection. The patient's troponin was elevated at 500. This qualifies as a NSTEMI. The patient was then placed on a heparin bolus and drip. He was also started on BiPAP secondary to his hypoxia with interstitial edema. His pulse ox improved to 96% his blood pressure also improved to 119/76. On reevaluation he reports his chest pain is a value of a 2 or 3. He states he does not want morphine at this time and now as his blood pressure is normotensive he will be started on Nitropaste and given a dose of IV Lasix. The case was discussed with Dr. Burnett/cardiology. He agrees with the current treatment method. He recommends patient receive an echocardiogram today and plans on performing a heart catheterization on Thursday. The plan of care was discussed with the patient and he is agreeable to it Lab Data Attestation: I reviewed the patient's lab results. Labs: Laboratory Results - last 24 hr 02/15/22 02/15/22 02/15/22 03:20 03:20 03:20 WBC RBC Hgb Hct MCV MCH MCHC RDW Std Deviation RDW Coeff of Digna Plt Count MPV Immature Gran % (Auto) Neut % (Auto) Lymph % (Auto) [place] % (Auto) Eos % (Auto) Baso % (Auto) Absolute Neuts (auto) Absolute Lymphs (auto) Nucleated RBC % PT 13.2 INR 1.0 APTT 30.4 Sodium 140 Potassium 4.0 Chloride 107 Carbon Dioxide 25.0 Anion Gap 8 BUN 31 H Creatinine 1.45 H Estim Creat Clear Calc 35.94 Est GFR (MDRD) Af Amer 59 L Est GFR (MDRD) Non-Af 49 L BUN/Creatinine Ratio 21.4 H Glucose 264 H Calcium 9.6 Magnesium 1.9 Troponin I High Sens 499 H* B-Natriuretic Peptide 796.6 H 02/15/22 02/15/22 03:20 05:05 WBC 11.5 H RBC 4.05 L Hgb 12.7 L Hct 39.6 L MCV 97.8 H MCH 31.4 MCHC 32.1 RDW Std Deviation 47.2 H RDW Coeff of Digna 13.2 Plt Count 242 MPV 11.2 Immature Gran % (Auto) 0.400 Neut % (Auto) 76.1 H Lymph % (Auto) 15.4 L [place] % (Auto) 5.5 Eos % (Auto) 2.1 Baso % (Auto) 0.5 Absolute Neuts (auto) 8.8 H Absolute Lymphs (auto) 1.77 Nucleated RBC % 0 PT INR APTT Sodium Potassium Chloride Carbon Dioxide Anion Gap BUN Creatinine Estim Creat Clear Calc Est GFR (MDRD) Af Amer Est GFR (MDRD) Non-Af BUN/Creatinine Ratio Glucose Calcium Magnesium Troponin I High Sens 1006 H* B-Natriuretic Peptide Radiography Diagnostic Testing: Clinical Impression(s) from Imaging Studies Chest CTA 02/15/22 03:24 IMPRESSION: 1. Negative for pulmonary embolism 2. Diffuse interstitial edema; bibasilar patchy airspace disease and small effusions Electronically Signed: David Downs DO at 5:10 EDT , Critical Care Time Critical Care Time: Yes Critical care time (excluding procedures): - (Please note critical care time of 33 minutes) Discharge Plan Dx/Rx/DC Orders Clinical Impression: Acute non-ST elevation myocardial infarction (NSTEMI), Interstitial edema, Acute respiratory failure with hypoxia, History of diabetes mellitus Disposition Disposition: Acute Care Hospital [facility]
[2022-02-15] MEDS: Ipratropium/Albuterol Sulfate 3 ML AMPUL.NEB INHALATION ×5 (03:33→19:40)
[2022-02-15 03:36] LABS: Absolute Lymphocyte Count 1.77 X10^3/uL (0.83-4.51); Absolute Neutrophil Count 8.8 X10^3/uL (2.0-7.7); Basophil# 0.06 X10^3/uL; Basophil% 0.5 % (0-1); Eosinophil# 0.24 X10^3/uL; Eosinophils% 2.1 % (0-5); Hematocrit 39.6 % (40-54); Hemoglobin 12.7 g/dL (13.0-16.5); Lymphocyte # 1.77 X10^3/ul (0.83-4.51); Lymphocyte % 15.4 % (19-41); Mean Corp Hgb Conc 32.1 g/dL (32-36); Mean Corpuscular Hgb 31.4 pg (27.0-32.0); Mean Corpuscular Volume 97.8 fL (80-94); Mean Platelet Vol. 11.2 fl (6.2-12.0); Monocyte# 0.63 X10^3/uL; Monocyte% 5.5 % (0-10); NRBC Flagged by Analyzer 0 % (0-5); Neutrophil # 8.76 X10^3/uL (2.7-7.7); Neutrophil % 76.1 % (47-70); Platelet Count 242 K/mm3 (150-450); RBC Distribution Width CV 13.2 % (11.6-14.6); RBC Distribution Width SD 47.2 fl (35.1-43.9); Red Blood Count 4.05 M/mm3 (4.6-6.2); White Blood Count 11.5 K/mm3 (4.4-11.0)
[2022-02-15 03:43] LABS: Prothrombin Time (Protime)PT. 13.2 SECONDS (11.7-14.9)
[2022-02-15] MEDS: Aspirin 81 MG TAB.CHEW 243 MG PO (03:43)
[2022-02-15 03:44] LABS: Partial Thromboplast Time 30.4 Seconds (24.1-36.2)
[2022-02-15 03:55] LABS: BNP,B-Type NATRIURETIC PEPTIDE 796.6 pg/mL (0-100)
[2022-02-15 04:00] LABS: Anion Gap 8 (5-15); BUN 31 mg/dL (7-18); BUN/Creat Ratio 21.4 RATIO (10-20); Calcium,Total 9.6 mg/dL (8.5-10.1); Chloride 107 mmol/L (98-107); Creatinine, Serum 1.45 mg/dL (0.70-1.30); EST Glomerular Filtration Rate 49 mL/min (>60); Est Glom Filt Rate - Afr Amer 59 mL/min (>60); Estimated Creatinine Clearance 35.94 ml/min; Glucose 264 mg/dL (74-106); Magnesium 1.9 mg/dL (1.6-2.6); Sodium Level 140 mmol/L (136-145); Troponin-I HS 499 pg/mL (3.0-78.0)
[2022-02-15] MEDS: Heparin Injection (Vial) 5,000 UNIT/ML VIAL 4500 UNIT IV (04:28)
[2022-02-15] MEDS: HEPARIN/D5w 25,000 UNITS 25,000 UNITS/250 ML IV.SOLN. 10 UNITS CONT INF (04:29)
[2022-02-15 05:34] LABS: Troponin-I HS 1006 pg/mL (3.0-78.0)
--- NOTE | 2022-02-15 05:42 | HP.PCM.HOS_ITS ---
[facility] - General General Date of Admission: 02/15/22 Date of Service: 02/15/22 Chief Complaint: SOB, chest pain HPI Narrative ZOFIA TOLEDO, is a 86 M who presents with shortness of breath and chest pain ongoing for 2 days. Patient had past medical history of type II DM, hypertension, hyperlipidemia, follows with cardiology. Patient stated that over the past 1 month, he has had intermittent left-sided chest discomfort that stops him in his tracks. These usually last for a few seconds and goes away. 2 days prior to admission, he had severe left-sided chest pain that started while she was working in the yard. Lasted for few minutes and went away. On the day of admission, he woke up with chest discomfort, substernal, felt like acid reflux. This however will not go away and lasted until he came to the emergency room. He denied any orthopnea or PND but admits to bilateral leg edema, worse over the last few weeks. He denied any diaphoresis or dizziness or palpitations. He admits to some weight gain. Vital in the ED showed an initial blood pressure 95/68, heart rate 95, respiratory 20, temperature 97.7, SPO2 86% on room air. This however improved to BiPAP with FiO2 70%. His WBC count 11.5, hemoglobin 12.7, platelet count 242, INR 1.0, BNP was remarkable for BUN of 31, creatinine 1.45, magnesium was 1.9, troponin was 1006, BNP of 796.6. CTA of the chest showed diffuse interstitial edema, bibasilar patchy airspace d isease and small effusion, negative for acute PE. [facility] Medical History Diabetes mellitus type II, controlled Essential (primary) hypertension Hyperlipidemia Irritable bowel syndrome Home Medications allopurinol 300 mg tablet 300 mg PO QDAY 06/29/17 [History Last Taken Unknown] aspirin 81 mg tablet,delayed release (Adult Aspirin Regimen) 81 mg PO QDAY 06/29/17 [History Last Taken Unknown] atenolol 50 mg tablet 50 mg PO QDAY 06/29/17 [History Last Taken Unknown] dicyclomine 10 mg capsule 10 mg PO Q8H PRN Pain 06/29/17 [History Last Taken Unknown] tamsulosin 0.4 mg capsule (Flomax) 0.4 mg PO QDAY 06/29/17 [History Last Taken Unknown] sitagliptin 50 mg-metformin 500 mg tablet (Julumet) 1 tab PO BID 06/29/18 [History Last Taken Unknown] finasteride 5 mg tablet 5 mg PO DAILY 08/10/20 [History Last Taken Unknown] latanoprost 0.005 % eye drops 1 drp ophthalmic (eye) DAILY 08/10/20 [History Last Taken Unknown] simvastatin 40 mg tablet 20 mg PO QHS 08/06/21 [History Last Taken Unknown] amlodipine 10 mg tablet 10 mg PO DAILY #90 tabs 08/22/21 [Rx Last Taken Unknown] Allergy/AdvReac Type Severity Reaction Status Date / Time No Known Allergies Allergy Verified 02/15/22 03:07 Family History Mother , age 86 after hip fx, had CVA CVA (cerebral vascular accident) Surgical History (Updated 02/15/22 @ 06:[address] Olga Bob MD) History of herniorrhaphy Social History (Updated 02/15/22 @ 06:[address] Olga Bob MD) household members: spouse Smoking Status: Never smoker alcohol intake: current details: occasional alcohol(wine) use substance use type: does not use ROS ROS Narrative Constitutional: Denies: Anorexia, Chills, Fever, Night Sweats, Weight Change Eyes: Denies: Blurred vision, Cataracts, Conjunctivae Inflammation, Pain, Redness, Vision Change HEENT: Denies: Difficulty Hearing, Difficulty Swallowing, Head Aches, Hearing Changes, Sinus Congestion, Sinus Drainage Cardiovascular: see HPI Respiratory: Denies: Cough, Shortness of breath at rest, Sputum production Gastrointestinal: Denies: Abdominal Pain, Nausea, Vomiting Genitourinary: Denies: Dysuria Musculoskeletal: Denies: Joint Pain, Joint stiffness, Joint swelling, Joint Tenderness Skin: Denies: Rash, Wounds Neurological: Denies: Numbness, Tingling, Focal weakness Vital Signs Vital Signs Vital Signs: 02/15/22 03:01 02/15/22 03:07 02/15/22 03:12 Temperature 97.7 F L Temperature Source Oral Pulse Rate 95 Respiratory Rate 20 H Respiratory Effort Normal Respiratory Depth Respiratory Pattern Normal Blood Pressure 95/68 Blood Pressure Mean 77 Pulse Ox 86 90 Oxygen Delivery Method Room Air Nasal Cannula Oxygen Flow Rate (L/min) 6 Fraction of Inspired Oxygen (FIO2) 02/15/22 03:41 02/15/22 03:33 02/15/22 03:33 Temperature Temperature Source Pulse Rate 91 Respiratory Rate 20 H 20 H Respiratory Effort Normal Respiratory Depth Normal Respiratory Pattern Normal Normal Blood Pressure 95/65 Blood Pressure Mean 75 Pulse Ox 93 90 Oxygen Delivery Method High Flow Nasal Cannula Oxygen Flow Rate (L/min) 15 8 Fraction of Inspired Oxygen (FIO2) 02/15/22 04:31 02/15/22 04:23 02/15/22 05:17 Temperature Temperature Source Pulse Rate 91 94 93 Respiratory Rate 20 H 20 H 16 Respiratory Effort Respiratory Depth Respiratory Pattern Normal Blood Pressure 111/72 119/76 Blood Pressure Mean 85 90 Pulse Ox 96 94 97 Oxygen Delivery Method Bi-pap Bi-pap Oxygen Flow Rate (L/min) Fraction of Inspired Oxygen (FIO2) 70 Weight Weight: 70.8 kg Body Mass Index (BMI) 22.4 Physical Exam Narrative Physical exam: General: Alert, Oriented x3, Cooperative, in moderate respiratory distress, on Bipap HEENT: Atraumatic Oral: Moist Mucosa Neck: Supple Lungs: Diminished to auscultation, crackles in middle and lower lung zones bila terally Cardiovascular: HS I+II, regular, no murmurs Abdomen: Bowel Sounds Present, Soft, Non Tender Extremities:Bilateral pedal edema +2 Skin: No rashes, No breakdown Neurological: Grossly intact Psych/Mental Status: Appropriate Results Lab / Micro Data Result Diagrams: 02/15/22 03:20 02/15/22 03:20 Labs: Laboratory Results - last 24 hr 02/15/22 03:20: PT 13.2, INR 1.0, APTT 30.4 02/15/22 03:20: Sodium 140, Potassium 4.0, Chloride 107, Carbon Dioxide 25.0, Anion Gap 8, BUN 31 H, Creatinine 1.45 H, Estim Creat Clear Calc 35.94, Est GFR (MDRD) Af Amer 59 L, Est GFR (MDRD) Non-Af 49 L, BUN/Creatinine Ratio 21.4 H, Glucose 264 H, Calcium 9.6, Magnesium 1.9, Troponin I High Sens 499 H* 02/15/22 03:20: B-Natriuretic Peptide 796.6 H 02/15/22 03:20: WBC 11.5 H, RBC 4.05 L, Hgb 12.7 L, Hct 39.6 L, MCV 97.8 H, MCH 31.4, MCHC 32.1, RDW Std Deviation 47.2 H, RDW Coeff of Digna 13.2, Plt Count 242, MPV 11.2, Immature Gran % (Auto) 0.400, Neut % (Auto) 76.1 H, Lymph % (Auto) 15.4 L, Talbot % (Auto) 5.5, Eos % (Auto) 2.1, Baso % (Auto) 0.5, Absolute Neuts (auto) 8.8 H, Absolute Lymphs (auto) 1.77, Nucleated RBC % 0 02/15/22 05:05: Troponin I High Sens 1006 H* Radiology Impression Chest CTA 02/15/22 03:24 IMPRESSION: 1. Negative for pulmonary embolism 2. Diffuse interstitial edema; bibasilar patchy airspace disease and small effusions Electronically Signed: David Downs DO at 5:10 EDT , Assessment & Plan Assessment/Plan (1) Acute non-ST elevation myocardial infarction (NSTEMI): (2) Acute respiratory failure with hypoxia: PLAN: Plan 1. Acute hypoxic respiratory failure secondary to heart failure Presented saturating 86% on room air, improved on BiPAP Continue with BiPAP, CHF protocol/treatment, Senior Systems Administrator consult 2. Acute CHF, unclear etiology, likely secondary to CAD BNPep is 796.6, troponin of 1006 Continue on Lasix, 2D echo, cardiology consult 3. Acute non-STEMI, admitting troponin went from 499 to 1006 No history of CAD, patient has multiple cardiovascular risk factors EKG showed no acute ST-T changes Started on heparin drip, Nitropaste We will hold off on starting atenolol for now on account of relative hypotension patient patient thyroid 4. Relative hypotension on admission, improved Continue to monitor 5. Hypertension/hyperlipidemia, blood pressure initially relatively low Hold amlodipine and atenolol for now Continue to monitor blood pressure 5. Type II DM, on sitagliptin and metformin We will hold these for now, continue with insulin sliding scale blood glucose checks 6. CKD stage IIIa, creatinine is about at baseline, admitting creatinine is 1.45 7. DVT prophylaxis?on heparin drip 8. I discussed and explained in details the various types of CODE STATUS-full code, DNR CCA, DNR CC. Patient chose DNR CCA, no intubation Time spent discussing CODE STATUS 16 minutes Charges/Coding Visit Charges Inpatient E&M: 50167 Init Hosp L3 Procedures Hospitalists Procedures: 04690 Advncd Care Plan 30 Min
--- NOTE | 2022-02-15 05:46 | ECHOCS_ITS ---
Reason For Study: DYSPNEA/SOB Procedure This was a 2D Doppler, Color Flow transthoracic echocardiogram. The study was technically difficult. Due to body habitus. Contrast injection was performed. Exam performed portable in patient room. Left Ventricle Moderately dilated left ventricle. The estimated ejection fraction is 30-35 %. Right Ventricle Normal right ventricle. Mild global right ventricular systolic dysfunction. Atria Normal left atrium. Normal right atrium. Mitral Valve The mitral valve is structurally normal. No prolapse or stenosis seen. Mild (1+) mitral valve insufficiency. Tricuspid Valve Normal tricuspid valve. Aortic Valve Normal aortic valve. Pulmonic Valve The pulmonic valve is not well visualized. Great Vessels Normal aortic root. Pericardium/Pleural No pericardial effusion. Medication Diluted definity 3.0ml given slow IV push to enhance endocardial definition. MMode/2D Measurements & Calculations LVIDd: 5.0 cm IVSd: 1.2 cm Ao root diam: 3.2 cm LVIDs: 3.8 cm LVPWd: 1.0 cm RVDd: 2.7 cm FS: 24.9 % LAV(MOD-bp): 27.4 ml LA A4 area: 10.2 cm2 LA dimension(2D): 2.8 cm LAV(MOD-bp) Indexed: 14.6 ml/m2 LAV(MOD-sp2): 28.2 ml LAV(MOD-sp4): 22.8 ml RA A4 area: 7.5 cm2 Doppler Measurements & Calculations MV E max celso: 87.7 cm/sec Lat Peak E' Celso: 7.1 cm/sec Med Peak E' Celso: 5.2 cm/sec MV A max celso: 101.1 cm/sec E/E' lat: 12.4 E/E' med: 16.9 MV E/A: 0.87 Ao V2 max: 71.9 cm/sec LV V1 max: 60.0 cm/sec MR max celso: 499.2 cm/sec Ao max P.1 mmHg LV V1 max P.4 mmHg MR max P.7 mmHg PA V2 max: 60.3 cm/sec ECHO/Echo Complete W/ Contrast Interpretation Summary The estimated ejection fraction is 30-35 %. Anero-apical and septal Hypokinesia Mild MR Ordering Physician: Olga Bob Referring Physician: Ryder Jessica Performed By: Dhara Haynes RDCS, RVT
[2022-02-15] MEDS: Furosemide 40 MG/4 ML Vial IV (06:11)
[2022-02-15] MEDS: Nitroglycerin Oint 1 INCH PACKET TD (06:13)
--- NOTE | 2022-02-15 08:24 | CON.PCM.CC_ITS ---
Assessment & Plan Assessment/Plan (1) Acute respiratory failure with hypoxia: (2) Acute non-ST elevation myocardial infarction (NSTEMI): (3) Essential (primary) hypertension: (4) History of diabetes mellitus: PLAN: Plan RECOMMENDATIONS: 1. Agree with diuretics and Nitropaste 2. BiPAP breaks as tolerated. Continue BiPAP with sleep for now 3. Cardiology work-up per cardiology 4. No bronchodilators or steroids would be indicated from my perspective 5. Monitor blood sugars closely IMPRESSIONS: 1. Acute hypoxic respiratory failure secondary to flash pulmonary edema Unclear etiology at this time. Patient may have an elevated troponin secondary to global hypoxia or an NSTEMI leading to flash pulmonary edema. Patient does have findings on CTA of the chest suggestive of pulmonary edema, elevated BNP and history of diastolic dysfunction. Patient appears to be responding well to diuretics and BiPAP. We will continue these for now. Patient likely will be able to take a break from BiPAP during the day to allow for nutrition. Patient does not have any smoking or asthma history to suggest an obstructive pulmonary disease that would require bronchodilators or steroids. In fact, these would likely exacerbate other comorbid conditions. Await echocardiogram. 2. Coronary artery disease/acute NSTEMI/hyperlipidemia/diabetes mellitus type 2/hypertension Patient does follow with cardiology at baseline. Patient is on a heparin drip and Nitropaste and appears to be tolerating well. We will hold on beta- blockers as patient may be in acute diastolic CHF. Echocardiogram has been ordered. Continue to monitor troponins until peaked. Blood sugars appear to be relatively controlled, but sliding scale insulin may be a better option. Patient is at risk for the development of lactic acidosis given CKD stage III with metformin. 3. Advanced age/CKD stage IIIa/relative hypotension Complicates care, management, recovery and prognosis. Renal function appears to be at its baseline at this time. Patient is very clear that he would not want to be intubated or receive CPR. Patient's blood pressure is on the lower side, but acceptable. There are no signs or symptoms of sepsis that I can identify. HPI Consult Data Date of Consult: 02/15/22 HPI Narrative Reason for Consultation: Hypoxic respiratory failure HPI Narrative: ZOFIA TOLEDO is an 86 M, with past medical history listed below, who presents to [facility] with progressive shortness of breath and intermittent chest discomfort that progressed to symptoms with minimal activity. Patient states that he was okay with rest, but it is gotten to the point that standing produce symptoms. Patient states that chest discomfort and dyspnea progressed to resting overnight, so patient came in for an evaluation. Patient does not have a history of coronary artery disease that he is aware of. Patient does not use supplemental oxygen at baseline. In the ER, patient was afebrile, but tachypneic at 20 breaths/min. Patient's blood pressures were marginal at 95/68, but he was saturating 86% on room air. Patient was initially attempted on nasal cannula oxygen, but ultimately required BiPAP to maintain saturations. BiPAP did resulted in improved blood pressure. Laboratory data showed normal coagulation studies, creatinine of 1.45 and glucose of 264. Patient's troponin was elevated at 499 and BNP was elevated at 797. White blood cell count was slightly elevated at 11.5 with a hemoglobin of 12.7. Subsequent troponin elevated to 1006. CTA of the chest showed no PE, but diffuse interstitial edema with bibasilar patchy airspace disease and small effusions. Patient was initiated on heparin secondary to an NSTEMI. Patient was given Nitropaste and a dose of IV Lasix. Case was discussed with cardiology and an echocardiogram has been ordered with plans for possible heart catheteriza tion on Thursday. Patient was subsequently admitted to the intensive care unit. On my evaluation in the intensive care unit, patient was feeling subjectively improved compared to previous. Patient is not reporting much of a cough. Patient states that the BiPAP is helpful in his breathing. Patient is tolerating this well and oxygen has been able to be weaned from 70% to 40%. Patient is reporting resolution of his chest pain. Patient is not reporting any nausea, vomiting or sinus congestion. Patient does not have a smoking history. Patient has no history of asthma or other breathing disorders. Patient has never required an inhaler. Patient describes himself as relatively healthy. Patient has not reported any significant lower extremity edema. Patient has not had any recent chest trauma. Patient is unaware if he is ever had a cardiac work-up previously. Patient does have a history of a carotid bruit on the right. Patient does have a history of diabetes but describes this as controlled. Review of systems otherwise negative from a constitutional, HEENT, respiratory, cardiovascular, GI, genitourinary, musculoskeletal, skin, neurologic, psychiatric and hematologic system unless stated above. [facility] Medical History Diabetes mellitus type II, controlled Essential (primary) hypertension Hyperlipidemia Irritable bowel syndrome Home Medications allopurinol 300 mg tablet 300 mg PO QDAY 06/29/17 [History Last Taken Unknown] aspirin 81 mg tablet,delayed release (Adult Aspirin Regimen) 81 mg PO QDAY 06/29/17 [History Last Taken Unknown] atenolol 50 mg tablet 50 mg PO QDAY 06/29/17 [History Last Taken Unknown] dicyclomine 10 mg capsule 10 mg PO Q8H PRN Pain 06/29/17 [History Last Taken Unknown] tamsulosin 0.4 mg capsule (Flomax) 0.4 mg PO QDAY 06/29/17 [History Last Taken Unknown] sitagliptin 50 mg-metformin 500 mg tablet (Janumet) 1 tab PO BID 06/29/18 [History Last Taken Unknown] finasteride 5 mg tablet 5 mg PO DAILY 08/10/20 [History Last Taken Unknown] latanoprost 0.005 % eye drops 1 drp ophthalmic (eye) DAILY 08/10/20 [History Last Taken Unknown] simvastatin 40 mg tablet 20 mg PO QHS 08/06/21 [History Last Taken Unknown] amlodipine 10 mg tablet 10 mg PO DAILY #90 tabs 08/22/21 [Rx Last Taken Unknown] Allergy/AdvReac Type Severity Reaction Status Date / Time No Known Allergies Allergy Verified 02/15/22 03:07 Family History Mother , age 86 after hip fx, had CVA CVA (cerebral vascular accident) Surgical History History of herniorrhaphy Social History household members: spouse Smoking Status: Never smoker alcohol intake: current details: occasional alcohol(wine) use substance use type: does not use ROS ROS Narrative See HPI Physical Exam Const alert, oriented x3 and no apparent distress Constitutional Narrative: Good BiPAP synchrony. General Appearance: Negative for in distress HEENT normocephalic and head/scalp atraumatic; Negative for moist oral mucous membranes General Ear: hearing grossly impaired diffuse Eyes PERRL, EOMs intact bilaterally and conjunctivae normal Neck full ROM Lymph Lymphatic: no lymphadenopathy noted Resp normal respiratory effort and no use of accessory muscles Resp Narrative: On BiPAP Effort and Inspection: Negative for actively coughing or uses accessory muscles Auscultation: rales; Negative for rhonchi or wheezes Cardio regular rate, regular rhythm, S1 normal heart sound, S2 normal heart sound, no murmurs, no rub, no gallops and no JVD Rate: tachycardic GI normal to inspection, nondistended, normoactive bowel sounds no CVA tenderness Extremity no clubbing, cyanosis or edema Skin no rashes or lesions noted Neuro oriented x3 and CN's II-XII intact bilaterally Psych cooperative and affect normal Medical Records Data Medical records narrative: Patient has no previous visits at [facility], but [facility] Lab / Micro Data Attestation: I reviewed the patient's lab results. Result Diagrams: 02/15/22 03:20 02/15/22 03:20 Labs: Laboratory Results - last 24 hr 02/15/22 03:20: PT 13.2, INR 1.0, APTT 30.4 02/15/22 03:20: Sodium 140, Potassium 4.0, Chloride 107, Carbon Dioxide 25.0, Anion Gap 8, BUN 31 H, Creatinine 1.45 H, Estim Creat Clear Calc 35.94, Est GFR (MDRD) Af Amer 59 L, Est GFR (MDRD) Non-Af 49 L, BUN/Creatinine Ratio 21.4 H, Glucose 264 H, Calcium 9.6, Magnesium 1.9, Troponin I High Sens 499 H* 02/15/22 03:20: B-Natriuretic Peptide 796.6 H 02/15/22 03:20: WBC 11.5 H, RBC 4.05 L, Hgb 12.7 L, Hct 39.6 L, MCV 97.8 H, MCH 31.4, MCHC 32.1, RDW Std Deviation 47.2 H, RDW Coeff of Digna 13.2, Plt Count 242, MPV 11.2, Immature Gran % (Auto) 0.400, Neut % (Auto) 76.1 H, Lymph % (Auto) 15.4 L, [place] % (Auto) 5.5, Eos % (Auto) 2.1, Baso % (Auto) 0.5, Absolute Neuts (auto) 8.8 H, Absolute Lymphs (auto) 1.77, Nucleated RBC % 0 02/15/22 05:05: Troponin I High Sens 1006 H* Radiology Impression Chest CTA 02/15/22 03:24 IMPRESSION: 1. Negative for pulmonary embolism 2. Diffuse interstitial edema; bibasilar patchy airspace disease and small effusions Electronically Signed: David Downs DO at 5:10 EDT , Charges/Coding Visit Charges Inpatient E&M: 06012 Init Hosp L3
[2022-02-15] MEDS: Tamsulosin HCl 0.4 MG Capsule PO (09:18)
[2022-02-15] MEDS: Aspirin E.C. 81 MG Tablet PO (09:18)
[2022-02-15] MEDS: Insulin Lispro 100 UNIT/ML INSULN.PEN SC ×4 (09:18→21:15)
[2022-02-15] MEDS: Furosemide 20 MG/2 ML VIAL IV ×2 (09:18→13:29)
[2022-02-15] MEDS: Allopurinol 300 MG Tablet PO (09:25)
[2022-02-15] MEDS: Finasteride 5 MG Tablet PO (09:25)
[2022-02-15 09:51] LABS: Bedside Glucose 239 mg/dL (74-106)
[2022-02-15 10:38] LABS: Troponin-I HS 18786 pg/mL (3.0-78.0)
[2022-02-15 10:47] LABS: Partial Thromboplast Time 173.6 Seconds (24.1-36.2)
--- NOTE | 2022-02-15 11:30 | CASEMGMT ---
RN TONIO Face to Face with patient for initial transition planning/care coordination assessment. RN CM introduced self and role at [facility]. Patient lying in bed, alert and oriented, daughters at bedside. Patient willing to participate in assessment and is able to answer all questions appropriately. Care providers, pharmacy, and demographics verified. Patient wishes to discharge home, denies need for home health at this time. Patient states he has no further needs or concerns at this time. CM to follow for discharge planning needs that may arise. PCP: Aracely Specialists: Sharonda, stick puller; Dilma urologist Preferred Pharmacy: [facility] Insurance: [employer] [facility] Prescription Benefit: yes Living Will/HPOA: yes, patient thinks it is his Connie Estrada LNOK: , daughters Living Arrangements: Patient lives with in a single story home with 1 step and grab bar to enter the home. Patient states he is independent at home. Transportation: self, DME/HHC: Patient states he has cane, walker, tub bench, and grab bars at home. Patient currently on Bipap, will monitor for home oxygen at discharge. No preferences on DME agency. No previous HHC or SNF Disposition Plan: Patient to discharge home with family support and follow-up plans in place. Carmel MA, RN, CM
[2022-02-15 12:36] LABS: Bedside Glucose 284 mg/dL (74-106)
--- NOTE | 2022-02-15 12:58 | PN.HOSP_ITS ---
Subjective Subjective Follow-up for acute hypoxic respiratory failure secondary to flash pulmonary edema. Non-STEMI Patient having chest discomfort on exertion with shortness of breath, intermittently for last 1 month. It got worse in last 2 days. Chest pressure did not resolve at rest therefore patient came to ED. Patient has not seen physician for many years. Denies prior history of RI/coronary artery disease, cardiac cath or any cardiac disorder. Denies history of COPD or other pulmonary disease. Objective Data Objective Data Vital Signs: Vital Signs Temp Pulse Resp BP Pulse Ox O2 Del Method O2 Flow Rate 97.6 F L 87 24 H 110/56 L 92 Bi-pap 15 02/15/22 06:30 02/15/22 07:00 02/15/22 07:00 02/15/22 07:00 02/15/22 07:00 02/15/22 07:00 02/15/22 03:41 FiO2 40 02/15/22 06:54 Oxygen Flow Rate (L/min) 15 Oxygen Delivery Method Bi-pap Weight: 147 lb 4.301 oz Body Mass Index (BMI) 21.1 Lab / Micro Data Result Diagrams: 02/15/22 03:20 02/15/22 03:20 Labs: Laboratory Results - last 24 hr 02/15/22 03:20: PT 13.2, INR 1.0, APTT 30.4 02/15/22 03:20: Sodium 140, Potassium 4.0, Chloride 107, Carbon Dioxide 25.0, Anion Gap 8, BUN 31 H, Creatinine 1.45 H, Estim Creat Clear Calc 35.94, Est GFR (MDRD) Af Amer 59 L, Est GFR (MDRD) Non-Af 49 L, BUN/Creatinine Ratio 21.4 H, Glucose 264 H, Calcium 9.6, Magnesium 1.9, Troponin I High Sens 499 H* 02/15/22 03:20: B-Natriuretic Peptide 796.6 H 02/15/22 03:20: WBC 11.5 H, RBC 4.05 L, Hgb 12.7 L, Hct 39.6 L, MCV 97.8 H, MCH 31.4, MCHC 32.1, RDW Std Deviation 47.2 H, RDW Coeff of Digna 13.2, Plt Count 242, MPV 11.2, Immature Gran % (Auto) 0.400, Neut % (Auto) 76.1 H, Lymph % (Auto) 15.4 L, [place] % (Auto) 5.5, Eos % (Auto) 2.1, Baso % (Auto) 0.5, Absolute Neuts (auto) 8.8 H, Absolute Lymphs (auto) 1.77, Nucleated RBC % 0 02/15/22 05:05: Troponin I High Sens 1006 H* Radiography Diagnostic Testing: Radiology Impression Chest CTA 02/15/22 03:24 IMPRESSION: 1. Negative for pulmonary embolism 2. Diffuse interstitial edema; bibasilar patchy airspace disease and small effusions Electronically Signed: David Downs DO at 5:10 EDT , Physical Exam Narrative Physical exam General: Alert, Oriented x3, Cooperative HEENT: Bilateral mild hearing loss. Atraumatic, PERRLA, EOMI, Normocephalic Oral: No Gingival or Mucosal Lesions/ Ulcerations Neck: Supple, No JVD, Negative Carotid Bruits Lungs: Air entry diminished in bilateral lung bases. Subtle basilar crepitations bilaterally. On BiPAP. Cardiovascular: Sinus rhythm, Normal S1, Normal S2, No murmurs Abdomen: Bowel Sounds Present, Soft, Non Tender, Non-Distended : No renal angle tenderness. No suprapubic tenderness. Extremities: 2+ pitting bilateral leg edema, Capillary Refill Less than 3 Seconds Skin: No rashes, No breakdown Musculoskeletal: No Tenderness to Palpation of Joints or Extremities Neurological: Cranial nerves II-XII grossly intact, DTR 2+/4 and Symmetrical, Neuro grossly intact Psych/Mental Status: Normal Affect, Appropriate. Assessment & Plan Assessment/Plan (1) Acute non-ST elevation myocardial infarction (NSTEMI): (2) Acute respiratory failure with hypoxia: PLAN: Plan This is a 86-year-old with gentleman was admitted for shortness of breath and chest pain/discomfort along the left side for 2 days. He had intermittent left- sided chest discomfort for about 1 month but 2 days ago chest pain got severe, lasted for few minutes then went away. On the day of admission, he woke up with chest discomfort substernal but pain did not go away. Patient has bilateral leg edema worse for last few weeks. 1. Acute hypoxic respiratory failure secondary to flash pulmonary edema: Triage vitals shows patient BP was 95/68, pulse ox 86% on room air. Heart rate 95/min. Patient was put on BiPAP, FiO2 70%. CTA shows diffuse interstitial edema, bibasilar patchy respiratory, and small effusion. Negative for PE: Chemical Dependency Nurse consulted. Chemical Dependency Nurse consult reviewed and appreciated. 2. Acute CHF, most likely due to non-STEMI:: BNP is 796.6, troponin of 1006. Patient responding well to diuretic in ED. Linoleum Floor Layer consulted. 2D echo reported EF 30 to 35%, moderately dilated LV. Normal RV, mild global RV systolic dysfunction. Normal left and right atria. Mild MR. Normal tricuspid and aortic valve. 3. Acute non-STEMI: Admitting troponin went from 499, 1006 to 18,786: EKG showed no acute ST-T changes On IV heparin drip, Nitropaste, baby aspirin, and atorvastatin. Hold beta-ray until patient gets euvolemic. Patient not on DEON/ARB as patient BP was low 95/65 in ED and CKD stage III with creatinine 1.45. 5. Hypertension and dyslipidemia: Hold amlodipine and Tylenol. Continue to monitor blood pressure 5. Type II DM, on sitagliptin and metformin: Hold oral hypoglycemic medications. Accu-Cheks before meals and at bedtime and cover with Humalog sliding scale. Glucose at 248. Started on Lantus 8 units and titrate upwards. 6. CKD stage IIIa, creatinine is about at baseline, about 1.40 admitting creatinine is 1.45 7. DVT prophylaxis?on heparin drip CODE STATUS: DNR CCA no intubation Total time of the visit including total time spent in counseling or coordination of care, (more than 50% of the total time, spent in obtaining medical information from nurses and other ancillary care providers,explaining to the patient about labs, imaging, diagnosis and management of active complex medical conditions), discussion with metal gauge maker and truck driver helper, review of labs, EKG and imaging is 40 minutes. Laboratory Results 02/15/22 03:20: PT 13.2, INR 1.0, APTT 30.4 02/15/22 03:20: Sodium 140, Potassium 4.0, Chloride 107, Carbon Dioxide 25.0, Anion Gap 8, BUN 31 H, Creatinine 1.45 H, Estim Creat Clear Calc 35.94, Est GFR (MDRD) Af Amer 59 L, Est GFR (MDRD) Non-Af 49 L, BUN/Creatinine Ratio 21.4 H, Glucose 264 H, Calcium 9.6, Magnesium 1.9, Troponin I High Sens 499 H* 02/15/22 03:20: B-Natriuretic Peptide 796.6 H 02/15/22 03:20: WBC 11.5 H, RBC 4.05 L, Hgb 12.7 L, Hct 39.6 L, MCV 97.8 H, MCH 31.4, MCHC 32.1, RDW Std Deviation 47.2 H, RDW Coeff of Digna 13.2, Plt Count 242, MPV 11.2, Immature Gran % (Auto) 0.400, Neut % (Auto) 76.1 H, Lymph % (Auto) 15.4 L, [place] % (Auto) 5.5, Eos % (Auto) 2.1, Baso % (Auto) 0.5, Absolute Neuts (auto) 8.8 H, Absolute Lymphs (auto) 1.77, Nucleated RBC % 0 02/15/22 05:05: Troponin I High Sens 1006 H* 02/15/22 08:51: POC Glucose 239 H 02/15/22 09:55: Troponin I High Sens [id number] H* 02/15/22 09:55: APTT 173.6 H* 02/15/22 12:03: POC Glucose 284 H Active Medications Acetaminophen (Acetaminophen 325 Mg Tablet) 650 mg PO Q6H PRN PRN PRN Reason: Pain Score 1-10/Temp > 100.7 F Albuterol/Ipratropium (Ipratropium/Albuterol Sulfate 3 Ml Ampul.Neb) 3 ml INHALATION Q4HWA.RT ON LICENSE OF [facility] Last Admin: 02/15/22 10:50 Dose: 3 ml Allopurinol (Allopurinol 300 Mg Tablet) 300 mg PO DAILYCM ON LICENSE OF [facility] Last Admin: 02/15/22 09:25 Dose: 300 mg Aspirin (Aspirin E.C. 81 Mg Tablet) 81 mg PO DAILYCM ON LICENSE OF [facility] Last Admin: 02/15/22 09:18 Dose: 81 mg Atorvastatin Calcium (Atorvastatin Calcium 10 Mg Tablet) 10 mg PO QHS [place] Dextrose (Dextrose 50%-Water 25 Gm/50 Ml Disp.Syrin) 0 gm IV X1 PRN; Protocol PRN Reason: Hypoglycemia Dicyclomine HCl (Dicyclomine 10 Mg Capsule) 10 mg PO Q8H PRN PRN PRN Reason: ABD SPASM Finasteride (Finasteride 5 Mg Tablet) 5 mg PO DAILY ON LICENSE OF [facility] Last Admin: 02/15/22 09:25 Dose: 5 mg Furosemide (Furosemide 20 Mg/2 Ml Vial) 20 mg IV Q8 ON LICENSE OF [facility] Last Admin: 02/15/22 09:18 Dose: 20 mg Glucagon (Glucagon 1 Mg/Ml Syringe) 1 mg IM X1 PRN PRN Reason: Hypoglycemia Heparin Sodium (Porcine) (Heparin Injection (Vial) 5,000 Unit/Ml Vial) 0 unit IV UD PRN; Protocol PRN Reason: dose adjustment Heparin Sodium/Dextrose () 25,000 units in 250 mls @ 10 mls/hr CONT INF .Q25H ON LICENSE OF [facility]; Protocol Last Titration: 02/15/22 10:53 Dose: 0 units/hr, 0 mls/hr Insulin Human Lispro (Insulin Lispro 100 Unit/Ml Insuln.Pen) 0 unit SC ACHS ON LICENSE OF [facility]; Protocol Last Admin: 02/15/22 12:04 Dose: 3 u Latanoprost (Latanoprost 0.005% 1 Bottle) 1 drp OPHTHALMIC 2200 ON LICENSE OF [facility] Ondansetron HCl (Ondansetron 4 Mg/2 Ml Vial) 4 mg IV Q8H PRN PRN PRN Reason: NAUSEA/VOMITING Senna/Docusate Sodium (Senna/Docusate Sodium 1 Tablet) 2 tablet PO BID PRN PRN PRN Reason: Constipation Sodium Chloride (0.9% Saline Lock 10 Ml Syringe) 10 - 40 ml IV UD PRN PRN Reason: SALINE FLUSH Tamsulosin HCl (Tamsulosin Hcl 0.4 Mg Capsule) 0.4 mg PO DAILY ON LICENSE OF [facility] Last Admin: 02/15/22 09:18 Dose: 0.4 mg Charges/Coding Procedures Hospitalists Procedures: [id number] Prolonged InPt Service; first hour
[2022-02-15] MEDS: Insulin Glargine-YFGN 100 UNIT/ML Pen 8 UNIT SC (13:30)
--- NOTE | 2022-02-15 14:06 | PCM.CONS.C ---
Assessment & Plan Assessment/Plan (1) History of diabetes mellitus: (2) Essential (primary) hypertension: (3) Hyperlipidemia: QUALIFIERS: Hyperlipidemia type: pure hypercholesterolemia Qualified Code(s): E78.00 - Pure hypercholesterolemia, unspecified; E78.00 - Pure hypercholesterolemia, unspecified; E78.00 - Pure hypercholesterolemia, unspecified; E78.0 - Pure hypercholesterolemia (4) Acute non-ST elevation myocardial infarction (NSTEMI): PLAN: 86-year-old patient who presented with chest pain, has been ongoing for the last 2 weeks noted mainly on exertion described as heaviness and pressure Get worse yesterday and came to the ER where evaluation by a series of cardiac biomarkers show significantly elevated high sensitive troponin I, more than 18,000 With a clinical diagnosis of non-ST elevation PR Patient has multiple risk factor for CAD with diabetes, hypertension hyperlipidemia. Also noted patient had acute hypoxic respiratory failure with flash pulm edema on admission responded well to diuretic therapy and BiPAP. Cardiac care plan recommendations; 1. I reviewed the current medication will continue current treatment added low-dose DEON inhibitor 2. Echocardiographic evaluation showed ejection fraction in the range of CAD?85% with large area of anteroapical and distal septal hypokinesia, mild mitral regurgitation. Finding on the CTA chest noted, negative for pulm embolism and diffuse interstitial edema 3. We will proceed with cardiac catheterization/right radial artery approach on Thursday. I explained in detail the cardiac care plan to the patient, family at bedside and to the nursing staff. HPI Consult Data Date of Consult: 02/15/22 HPI Narrative Reason for Consultation: Patient with non-STEMI HPI Narrative: ZOFIA TOLEOD, is a 86 M who presents [facility] Medical History Diabetes mellitus type II, controlled Essential (primary) hypertension Hyperlipidemia Irritable bowel syndrome Home Medications allopurinol 300 mg tablet 300 mg PO QDAY 06/29/17 [History Last Taken Unknown] aspirin 81 mg tablet,delayed release (Adult Aspirin Regimen) 81 mg PO QDAY 06/29/17 [History Last Taken Unknown] atenolol 50 mg tablet 50 mg PO QDAY 06/29/17 [History Last Taken Unknown] dicyclomine 10 mg capsule 10 mg PO Q8H PRN Pain 06/29/17 [History Last Taken Unknown] tamsulosin 0.4 mg capsule (Flomax) 0.4 mg PO QDAY 06/29/17 [History Last Taken Unknown] sitagliptin 50 mg-metformin 500 mg tablet (Janumet) 1 tab PO BID 06/29/18 [History Last Taken Unknown] finasteride 5 mg tablet 5 mg PO DAILY 08/10/20 [History Last Taken Unknown] latanoprost 0.005 % eye drops 1 drp ophthalmic (eye) DAILY 08/10/20 [History Last Taken Unknown] simvastatin 40 mg tablet 20 mg PO QHS 08/06/21 [History Last Taken Unknown] amlodipine 10 mg tablet 10 mg PO DAILY #90 tabs 08/22/21 [Rx Last Taken Unknown] Allergy/AdvReac Type Severity Reaction Status Date / Time No Known Allergies Allergy Verified 02/15/22 03:07 Family History Mother , age 86 after hip fx, had CVA CVA (cerebral vascular accident) Surgical History History of herniorrhaphy Social History household members: spouse Smoking Status: Never smoker alcohol intake: current details: occasional alcohol(wine) use substance use type: does not use Physical Exam Narrative Patient seen and evaluated today at bedside along with the nursing staff Daughter and granddaughter at bedside Alert orientated Has mild symptoms of left-sided chest pressure Review of quality assurance monitor body normal sinus Cardiovascular exam S1-S2 regular. No murmur Chest exam clear to auscultation bilateral Examination abdomen soft Examination lower extremity no clubbing no cyanosis no extremity edema Risk Stratification Risk Stratification Applicable: Yes Age >/= 65: Yes >/= 3 CAD Risk Factors (HTN, HLD, DM, family hx of CAD, or current smoker): Yes Aspirin Use in the Past 7 Days: Yes Severe Angina (>/= episodes in 24 hours): Yes EKG ST Changes >/= 0.5mm: Yes Positive Cardiac Marker: Yes ETHAN Risk Stratification Score: 6 ETHAN % Risk: 41% Risk Objective Data Vital Signs: Vital Signs Temp Pulse Resp BP Pulse Ox O2 Del Method O2 Flow Rate 97.8 F 81 28 H 124/75 H 94 Bi-pap 15 02/15/22 12:00 02/15/22 13:49 02/15/22 13:49 02/15/22 12:00 02/15/22 13:49 02/15/22 12:00 02/15/22 03:41 FiO2 35 02/15/22 13:49 Oxygen Flow Rate (L/min) 15 Oxygen Delivery Method Bi-pap Weight: 147 lb 4.301 oz Body Mass Index (BMI) 21.1 Intake & Output: Intake and Output for Last 24 Hours 02/13/22 02/14/22 02/15/22 23:59 23:59 23:59 Intake Total 64.00 / 64.00 Output Total 1450 / 1450 Balance -1386.00 / -1386.00 Lab / Micro Data Result Diagrams: 02/15/22 03:20 02/15/22 03:20 Labs: Laboratory Results - last 24 hr 02/15/22 03:20: PT 13.2, INR 1.0, APTT 30.4 02/15/22 03:20: Sodium 140, Potassium 4.0, Chloride 107, Carbon Dioxide 25.0, Anion Gap 8, BUN 31 H, Creatinine 1.45 H, Estim Creat Clear Calc 35.94, Est GFR (MDRD) Af Amer 59 L, Est GFR (MDRD) Non-Af 49 L, BUN/Creatinine Ratio 21.4 H, Glucose 264 H, Calcium 9.6, Magnesium 1.9, Troponin I High Sens 499 H* 02/15/22 03:20: B-Natriuretic Peptide 796.6 H 02/15/22 03:20: WBC 11.5 H, RBC 4.05 L, Hgb 12.7 L, Hct 39.6 L, MCV 97.8 H, MCH 31.4, MCHC 32.1, RDW Std Deviation 47.2 H, RDW Coeff of Digna 13.2, Plt Count 242, MPV 11.2, Immature Gran % (Auto) 0.400, Neut % (Auto) 76.1 H, Lymph % (Auto) 15.4 L, [place] % (Auto) 5.5, Eos % (Auto) 2.1, Baso % (Auto) 0.5, Absolute Neuts (auto) 8.8 H, Absolute Lymphs (auto) 1.77, Nucleated RBC % 0 02/15/22 05:05: Troponin I High Sens 1006 H* 02/15/22 08:51: POC Glucose 239 H 02/15/22 09:55: Troponin I High Sens [id number] H* 02/15/22 09:55: APTT 173.6 H* 02/15/22 12:03: POC Glucose 284 H Cardiology Labs/Tests 02/15/22 03:20: PT 13.2, INR 1.0, APTT 30.4 02/15/22 03:20: Sodium 140, Potassium 4.0, Chloride 107, Carbon Dioxide 25.0, Anion Gap 8, BUN 31 H, Creatinine 1.45 H, Est GFR (MDRD) Af Amer 59 L, Est GFR (MDRD) Non-Af 49 L, BUN/Creatinine Ratio 21.4 H, Glucose 264 H, Calcium 9.6, Magnesium 1.9 02/15/22 03:20: B-Natriuretic Peptide 796.6 H 02/15/22 03:20: WBC 11.5 H, RBC 4.05 L, Hgb 12.7 L, Hct 39.6 L, MCV 97.8 H, MCH 31.4, MCHC 32.1, Plt Count 242, MPV 11.2, Immature Gran % (Auto) 0.400, Neut % (Auto) 76.1 H, Lymph % (Auto) 15.4 L, Dale % (Auto) 5.5, Eos % (Auto) 2.1, Baso % (Auto) 0.5, Absolute Neuts (auto) 8.8 H, Nucleated RBC % 0 02/15/22 09:55: APTT 173.6 H* Rhythm: Normal sinus rhythm Radiography Diagnostic Testing: Radiology Impression Chest CTA 02/15/22 03:24 IMPRESSION: 1. Negative for pulmonary embolism 2. Diffuse interstitial edema; bibasilar patchy airspace disease and small effusions Electronically Signed: Davdi Downs DO at 5:10 EDT , Echocardiogram 02/15/22 05:46 Interpretation Summary The estimated ejection fraction is 30-35 %. Anero-apical and septal Hypokinesia Mild MR Ordering Physician: Olga Bob Referring Physician: Ryder Jessica Performed By: Dhara Haynes, KATIE, RVT
[2022-02-15] MEDS: Lisinopril 5 MG Tablet PO (16:03)
[2022-02-15 16:45] LABS: Anion Gap 8 (5-15); BUN 33 mg/dL (7-18); BUN/Creat Ratio 20.6 RATIO (10-20); Calcium,Total 10.4 mg/dL (8.5-10.1); Chloride 107 mmol/L (98-107); EST Glomerular Filtration Rate 44 mL/min (>60); Est Glom Filt Rate - Afr Amer 53 mL/min (>60); Estimated Creatinine Clearance 30.73 ml/min; Glucose 209 mg/dL (74-106); Magnesium 1.6 mg/dL (1.6-2.6); Phosphorus 3.9 mg/dL (2.5-4.9); Potassium 3.8 mmol/L (3.5-5.1); Sodium Level 141 mmol/L (136-145)
[2022-02-15 19:34] LABS: Partial Thromboplast Time 92.9 Seconds (24.1-36.2)
--- NOTE | 2022-02-15 19:40 | CPS ---
Pt refused BiPAP for the night.
--- NOTE | 2022-02-15 21:02 | NURSING ---
Granddaughter Isabel phone number [phone]. Okay per pt to give her updates.
[2022-02-15] MEDS: Latanoprost 0.005% 1 Bottle 1 DRP OPHTHALMIC (21:13)
[2022-02-15] MEDS: Atorvastatin Calcium 10 MG Tablet PO (21:13)
[2022-02-16] VITALS (38 sets, daily range): BP systolic 84–112; BP diastolic 53–72; PULSE 77–107; RESP 12–30; TEMP 36.6–37.2; O2SAT 87–99
[2022-02-16 01:54] LABS: Partial Thromboplast Time 51.9 Seconds (24.1-36.2)
[2022-02-16] MEDS: 0.9% Saline Lock 10 ML Syringe IV ×4 (02:03→17:32)
[2022-02-16] MEDS: Heparin Injection (Vial) 5,000 UNIT/ML VIAL IV ×2 (02:03→16:07)
[2022-02-16 03:45] LABS: Absolute Lymphocyte Count 1.55 X10^3/uL (0.83-4.51); Absolute Neutrophil Count 8.9 X10^3/uL (2.0-7.7); Basophil# 0.03 X10^3/uL; Basophil% 0.3 % (0-1); Eosinophil# 0.06 X10^3/uL; Eosinophils% 0.5 % (0-5); Hematocrit 33.1 % (40-54); Hemoglobin 10.8 g/dL (13.0-16.5); Lymphocyte # 1.55 X10^3/ul (0.83-4.51); Lymphocyte % 13.5 % (19-41); Mean Corp Hgb Conc 32.6 g/dL (32-36); Mean Corpuscular Volume 95.1 fL (80-94); Monocyte% 7.9 % (0-10); NRBC Flagged by Analyzer 0 % (0-5); Neutrophil # 8.88 X10^3/uL (2.7-7.7); Neutrophil % 77.5 % (47-70); Platelet Count 193 K/mm3 (150-450); RBC Distribution Width CV 13.2 % (11.6-14.6); RBC Distribution Width SD 45.1 fl (35.1-43.9); Red Blood Count 3.48 M/mm3 (4.6-6.2); White Blood Count 11.5 K/mm3 (4.4-11.0)
[2022-02-16 04:01] LABS: ALB/GLOB Ratio 0.8 RATIO (0.9-2.4); AST(SGOT) 90 U/L (15-37); Alanine Aminotransfer ALT/SGPT 28 U/L (16-61); Albumin, Serum 2.8 g/dL (3.2-5.0); Alkaline Phosphatase 88 U/L (45-117); Anion Gap 7 (5-15); BUN 31 mg/dL (7-18); BUN/Creat Ratio 20.4 RATIO (10-20); Calcium,Total 8.9 mg/dL (8.5-10.1); Chloride 106 mmol/L (98-107); Creatinine, Serum 1.52 mg/dL (0.70-1.30); EST Glomerular Filtration Rate 46 mL/min (>60); Est Glom Filt Rate - Afr Amer 56 mL/min (>60); Estimated Creatinine Clearance 32.69 ml/min; Globulin 3.3 g/dL (2.2-4.2); Glucose 213 mg/dL (74-106); Potassium 3.6 mmol/L (3.5-5.1); Protein, Total 6.1 g/dL (6.4-8.2); Sodium Level 140 mmol/L (136-145)
[2022-02-16] MEDS: Ipratropium/Albuterol Sulfate 3 ML AMPUL.NEB INHALATION ×3 (07:02→19:05)
--- NOTE | 2022-02-16 07:09 | PN.CC_ITS ---
Assessment & Plan Assessment/Plan (1) Acute respiratory failure with hypoxia: (2) Acute non-ST elevation myocardial infarction (NSTEMI): (3) Essential (primary) hypertension: (4) History of diabetes mellitus: PLAN: Plan RECOMMENDATIONS: 1. Continue with diuretics. Supplement potassium. 2. Continue BiPAP with sleep. 3. Cardiology work-up per cardiology 4. No bronchodilators or steroids would be indicated from my perspective 5. Monitor blood sugars closely 6. Okay to leave the intensive care unit from my perspective IMPRESSIONS: 1. Acute hypoxic respiratory failure secondary to flash pulmonary edema Unclear etiology at this time. Patient may have an elevated troponin secondary to global hypoxia or an NSTEMI leading to flash pulmonary edema. Patient does have findings on CTA of the chest suggestive of pulmonary edema, elevated BNP and history of diastolic dysfunction. Patient appears to be responding well to diuretics. Echocardiogram from yesterday does show an element of systolic CHF with an EF between 30 and 35%. Likely okay to transition to BiPAP with sleep only. Patient does not have any smoking or asthma history to suggest an obstructive pulmonary disease that would require bronchodilators or steroids. In fact, these would likely exacerbate other comorbid conditions. Okay to leave the intensive care unit from my perspective 2. Coronary artery disease/acute NSTEMI/hyperlipidemia/diabetes mellitus type 2/hypertension Patient does follow with cardiology at baseline. Patient is on a heparin drip and Nitropaste and appears to be tolerating well. We will hold on beta- blockers as patient may be in acute diastolic CHF. Echocardiogram does show sys tolic dysfunction with regional hypokinesis. Continue to monitor troponins until peaked. Blood sugars appear to be relatively controlled, but sliding scale insulin may be a better option. Patient is at risk for the development of lactic acidosis given CKD stage III with metformin. 3. Advanced age/CKD stage IIIa/relative hypotension Complicates care, management, recovery and prognosis. Renal function appears to be at its baseline at this time. Patient is very clear that he would not want to be intubated or receive CPR. Patient's blood pressure is on the lower side, but acceptable. There are no signs or symptoms of sepsis that I can identify. Subjective Subjective Patient did well overnight. No acute issues were reported. Patient was able to come off of BiPAP for short breaks and tolerated well. Patient currently on nasal cannula oxygen. Patient is not reporting any chest pain. Patient feels his dyspnea is much improved compared to previous. Objective Data Objective Data Vital Signs: Vital Signs Temp Pulse Resp BP Pulse Ox O2 Del Method O2 Flow Rate 36.8 C 84 17 91/57 L 93 Nasal Cannula 10 02/16/22 04:00 02/16/22 07:02 02/16/22 07:02 02/16/22 06:00 02/16/22 07:02 02/16/22 07:02 02/16/22 07:02 FiO2 25 02/16/22 04:00 Oxygen Flow Rate (L/min) 10 Oxygen Delivery Method Nasal Cannula Weight: 67.5 kg Body Mass Index (BMI) 21.1 Intake & Output: Intake and Output for Last 24 Hours 02/14/22 02/15/22 02/16/22 23:59 23:59 23:59 Intake Total 604.08 / 604.08 38.2 / 38.2 Output Total 2300 / 2300 175 / 175 Balance -1695.92 / -1695.92 -136.8 / -136.8 Lab / Micro Data Attestation: I reviewed the patient's lab results. Result Diagrams: 02/16/22 03:39 02/16/22 03:39 Labs: Laboratory Results - last 24 hr 02/15/22 08:51: POC Glucose 239 H 02/15/22 09:55: Troponin I High Sens [id number] H* 02/15/22 09:55: APTT 173.6 H* 02/15/22 12:03: POC Glucose 284 H 02/15/22 16:25: Sodium 141, Potassium 3.8, Chloride 107, Carbon Dioxide 26.0, Anion Gap 8, BUN 33 H, Creatinine 1.60 H, Estim Creat Clear Calc 30.73, Est GFR (MDRD) Af Amer 53 L, Est GFR (MDRD) Non-Af 44 L, BUN/Creatinine Ratio 20.6 H, Glucose 209 H, Calcium 10.4 H, Phosphorus 3.9, Magnesium 1.6 02/15/22 18:55: APTT 92.9 H* 02/16/22 01:39: APTT 51.9 H 02/16/22 03:39: WBC 11.5 H, RBC 3.48 L, Hgb 10.8 L, Hct 33.1 L, MCV 95.1 H, MCH 31.0, MCHC 32.6, RDW Std Deviation 45.1 H, RDW Coeff of Digna 13.2, Plt Count 193, MPV 11.0, Immature Gran % (Auto) 0.300, Neut % (Auto) 77.5 H, Lymph % (Auto) 13.5 L, [place] % (Auto) 7.9, Eos % (Auto) 0.5, Baso % (Auto) 0.3, Absolute Neuts (auto) 8.9 H, Absolute Lymphs (auto) 1.55, Nucleated RBC % 0 02/16/22 03:39: Sodium 140, Potassium 3.6, Chloride 106, Carbon Dioxide 27.0, Anion Gap 7, BUN 31 H, Creatinine 1.52 H, Estim Creat Clear Calc 32.69, Est GFR (MDRD) Af Amer 56 L, Est GFR (MDRD) Non-Af 46 L, BUN/Creatinine Ratio 20.4 H, Glucose 213 H, Calcium 8.9, Total Bilirubin 0.40, AST 90 H, ALT 28, Alkaline Phosphatase 88, Total Protein 6.1 L, Albumin 2.8 L, Globulin 3.3, Albumin/Globulin Ratio 0.8 L Radiography Diagnostic Testing: Radiology Impression Echocardiogram 02/15/22 05:46 Interpretation Summary The estimated ejection fraction is 30-35 %. Anero-apical and septal Hypokinesia Mild MR Ordering Physician: Olga Bob Referring Physician: Ryder Jessica Performed By: Dhara Haynes, KATIE, RVT Physical Exam Const alert, oriented x3 and no apparent distress General Appearance: Negative for in distress HEENT normocephalic and head/scalp atraumatic; Negative for moist oral mucous membranes Eyes PERRL, EOMs intact bilaterally and conjunctivae normal Neck full ROM Lymph Lymphatic: no lymphadenopathy noted Resp normal respiratory effort and no use of accessory muscles Resp Narrative: Rales improved compared to yesterday Effort and Inspection: Negative for actively coughing or uses accessory muscles Auscultation: rales; Negative for rhonchi or wheezes Cardio regular rate, regular rhythm, S1 normal heart sound, S2 normal heart sound, no murmurs, no rub, no gallops and no JVD Rate: tachycardic GI normal to inspection, nondistended, normoactive bowel sounds no CVA tenderness Extremity no clubbing, cyanosis or edema Skin no rashes or lesions noted Neuro oriented x3 and CN's II-XII intact bilaterally Psych cooperative and affect normal Charges/Coding Visit Charges Inpatient E&M: 67531 Subs Hosp L2
--- NOTE | 2022-02-16 07:20 | PN.HOSP_ITS ---
Subjective Subjective Patient is an 86-year-old gentleman admitted with chest pain and shortness of breath. An assessment of acute hypoxic respiratory failure secondary to acute congestive heart failure made. Placed on BiPAP admitted to monitored bed for further management. Subsequent serial cardiac enzymes obtained came back consistent with acute non-STEMI. Placed on heparin. Objective Data Objective Data Vital Signs: Vital Signs Temp Pulse Resp BP Pulse Ox O2 Del Method O2 Flow Rate 98.3 F 84 17 105/66 93 Nasal Cannula 10 02/16/22 04:00 02/16/22 07:02 02/16/22 07:02 02/16/22 07:00 02/16/22 07:02 02/16/22 07:02 02/16/22 07:02 FiO2 25 02/16/22 04:00 Oxygen Flow Rate (L/min) 10 Oxygen Delivery Method Nasal Cannula Weight: 67.5 kg Body Mass Index (BMI) 21.1 Intake & Output: Intake and Output for Last 24 Hours 02/14/22 02/15/22 02/16/22 23:59 23:59 23:59 Intake Total 604.08 / 604.08 38.2 / 38.2 Output Total 2300 / 2300 175 / 175 Balance -1695.92 / -1695.92 -136.8 / -136.8 Lab / Micro Data Result Diagrams: 02/16/22 03:39 02/16/22 03:39 Labs: Laboratory Results - last 24 hr 02/15/22 08:51: POC Glucose 239 H 02/15/22 09:55: Troponin I High Sens 47088 H* 02/15/22 09:55: APTT 173.6 H* 02/15/22 12:03: POC Glucose 284 H 02/15/22 16:25: Sodium 141, Potassium 3.8, Chloride 107, Carbon Dioxide 26.0, Anion Gap 8, BUN 33 H, Creatinine 1.60 H, Estim Creat Clear Calc 30.73, Est GFR (MDRD) Af Amer 53 L, Est GFR (MDRD) Non-Af 44 L, BUN/Creatinine Ratio 20.6 H, Glucose 209 H, Calcium 10.4 H, Phosphorus 3.9, Magnesium 1.6 02/15/22 18:55: APTT 92.9 H* 02/16/22 01:39: APTT 51.9 H 02/16/22 03:39: WBC 11.5 H, RBC 3.48 L, Hgb 10.8 L, Hct 33.1 L, MCV 95.1 H, MCH 31.0, MCHC 32.6, RDW Std Deviation 45.1 H, RDW Coeff of Digna 13.2, Plt Count 193, MPV 11.0, Immature Gran % (Auto) 0.300, Neut % (Auto) 77.5 H, Lymph % (Auto) 13.5 L, [place] % (Auto) 7.9, Eos % (Auto) 0.5, Baso % (Auto) 0.3, Absolute Neuts (auto) 8.9 H, Absolute Lymphs (auto) 1.55, Nucleated RBC % 0 02/16/22 03:39: Sodium 140, Potassium 3.6, Chloride 106, Carbon Dioxide 27.0, Anion Gap 7, BUN 31 H, Creatinine 1.52 H, Estim Creat Clear Calc 32.69, Est GFR (MDRD) Af Amer 56 L, Est GFR (MDRD) Non-Af 46 L, BUN/Creatinine Ratio 20.4 H, Glucose 213 H, Calcium 8.9, Total Bilirubin 0.40, AST 90 H, ALT 28, Alkaline Phosphatase 88, Total Protein 6.1 L, Albumin 2.8 L, Globulin 3.3, Albumin/Globulin Ratio 0.8 L Radiography Diagnostic Testing: Radiology Impression Echocardiogram 02/15/22 05:46 Interpretation Summary The estimated ejection fraction is 30-35 %. Anero-apical and septal Hypokinesia Mild MR Ordering Physician: Olga Bob Referring Physician: Ryder Jessica Performed By: Dhara Haynes, KATIE, RVT Physical Exam Narrative GENERAL: cooperative HEENT: Atraumatic; EYES; Anicteric, Normal Conjunctiva NECK; supple, normal thyroid, RESPIRATORY: Diminished to auscultation CARDIOVASCULAR: Regular S1 S2, GI: soft, normoactive bowel sounds, : No Renal angle tenderness; EXTREMITIES: Bipedal edema, no clubbing, MUSCULOSKELETAL: no muscle wasting NEURO: Awake; no lateralizing signs. SKIN: No Rash PSYCH; Flat affect Assessment & Plan Assessment/Plan (1) Acute non-ST elevation myocardial infarction (NSTEMI): (2) Acute respiratory failure with hypoxia: PLAN: Plan Patient is an 86-year-old gentleman admitted with chest pain and shortness of breath. An assessment of acute hypoxic respiratory failure secondary to acute congestive heart failure made. Placed on BiPAP admitted to monitored bed for further management. Subsequent serial cardiac enzymes obtained came back consistent with acute non-STEMI. Placed on heparin. 1. Acute hypoxic respiratory failure ? Secondary to pulmonary edema from acute congestive heart failure. Patient was managed with noninvasive ventilation with BiPAP with consultation placed to signal timer 2. Acute congestive heart failure with reduced ejection fraction -2D echo obtained results? estimated ejection fraction is 30-35 %. Anero-apical and septal Hypokinesia Mild MR. Patient has been managed with diuretics r esponded to treatment 3. Acute non-STEMI ? Patient currently being managed with antiplatelet therapy, DEON inhibitor's, atorvastatin and heparin drip. Plan is to initiate beta-blockers once patient is euvolemic. Consultation was placed to cardiology. Patient scheduled to undergo left heart catheterization on 02/17/2022 4. Diabetes mellitus type II -patient's oral hypoglycemics held. Placed on long acting insulin, Accu-Cheks a.c. and at bedtime and covered with sliding scale insulin 5. Dyslipidemia -Patient is on statin therapy, continued at home dose 6. Hypertension - Blood pressure controlled, home medications continued with dose adjustment as needed 7. Gout ? Patient is on allopurinol did continue 8. Chronic kidney disease stage IIIa ? Kidney function at baseline 9. DVT prophylaxis ? On heparin drip CODE STATUS: DNR CCA no intubation Charges/Coding Visit Charges Inpatient E&M: 61909 [facility] Hosp L3
[2022-02-16] MEDS: Insulin Lispro 100 UNIT/ML INSULN.PEN SC ×4 (08:22→21:54)
[2022-02-16] MEDS: Furosemide 20 MG/2 ML VIAL IV ×2 (08:23→17:26)
[2022-02-16] MEDS: Aspirin E.C. 81 MG Tablet PO (08:23)
[2022-02-16 08:27] LABS: Partial Thromboplast Time 56.2 Seconds (24.1-36.2)
[2022-02-16] MEDS: Allopurinol 300 MG Tablet PO (09:57)
[2022-02-16] MEDS: Potassium Chloride Oral Tablet 20 MEQ 40 MEQ PO (09:57)
[2022-02-16] MEDS: Tamsulosin HCl 0.4 MG Capsule PO (09:58)
[2022-02-16] MEDS: Finasteride 5 MG Tablet PO (09:59)
[2022-02-16 11:25] LABS: Bedside Glucose 317 mg/dL (74-106)
[2022-02-16] MEDS: Insulin Glargine-YFGN 100 UNIT/ML Pen 8 UNIT SC (12:02)
--- NOTE | 2022-02-16 12:32 | PN.CARD_ITS ---
Subjective Subjective No event from last night Comfortable no symptoms of chest pain reported Objective Data Vital Signs: Vital Signs Temp Pulse Resp BP Pulse Ox O2 Del Method O2 Flow Rate 97.8 F 96 25 H 92/58 L 88 Nasal Cannula 2 02/16/22 12:00 02/16/22 12:00 02/16/22 12:00 02/16/22 12:00 02/16/22 12:13 02/16/22 12:13 02/16/22 12:13 FiO2 25 02/16/22 04:00 Oxygen Flow Rate (L/min) 2 Oxygen Delivery Method Nasal Cannula Weight: 148 lb 12.992 oz Body Mass Index (BMI) 21.1 Intake & Output: Intake and Output for Last 24 Hours 02/14/22 02/15/22 02/16/22 23:59 23:59 23:59 Intake Total 604.08 / 604.08 891.63 / 891.63 Output Total 2300 / 2300 375 / 375 Balance -1695.92 / -1695.92 516.63 / 516.63 Lab / Micro Data Result Diagrams: 02/16/22 03:39 02/16/22 03:39 Labs: Laboratory Results - last 24 hr 02/15/22 12:03: POC Glucose 284 H 02/15/22 16:25: Sodium 141, Potassium 3.8, Chloride 107, Carbon Dioxide 26.0, Anion Gap 8, BUN 33 H, Creatinine 1.60 H, Estim Creat Clear Calc 30.73, Est GFR (MDRD) Af Amer 53 L, Est GFR (MDRD) Non-Af 44 L, BUN/Creatinine Ratio 20.6 H, Glucose 209 H, Calcium 10.4 H, Phosphorus 3.9, Magnesium 1.6 02/15/22 18:55: APTT 92.9 H* 02/16/22 01:39: APTT 51.9 H 02/16/22 03:39: WBC 11.5 H, RBC 3.48 L, Hgb 10.8 L, Hct 33.1 L, MCV 95.1 H, MCH 31.0, MCHC 32.6, RDW Std Deviation 45.1 H, RDW Coeff of Digna 13.2, Plt Count 193, MPV 11.0, Immature Gran % (Auto) 0.300, Neut % (Auto) 77.5 H, Lymph % (Auto) 13.5 L, [place] % (Auto) 7.9, Eos % (Auto) 0.5, Baso % (Auto) 0.3, Absolute Neuts (auto) 8.9 H, Absolute Lymphs (auto) 1.55, Nucleated RBC % 0 02/16/22 03:39: Sodium 140, Potassium 3.6, Chloride 106, Carbon Dioxide 27.0, Anion Gap 7, BUN 31 H, Creatinine 1.52 H, Estim Creat Clear Calc 32.69, Est GFR (MDRD) Af Amer 56 L, Est GFR (MDRD) Non-Af 46 L, BUN/Creatinine Ratio 20.4 H, Glucose 213 H, Calcium 8.9, Total Bilirubin 0.40, AST 90 H, ALT 28, Alkaline Phosphatase 88, Total Protein 6.1 L, Albumin 2.8 L, Globulin 3.3, Albumin/Globulin Ratio 0.8 L 02/16/22 08:00: APTT 56.2 H 02/16/22 11:08: POC Glucose 317 H Cardiology Labs/Tests 02/15/22 16:25: Sodium 141, Potassium 3.8, Chloride 107, Carbon Dioxide 26.0, Anion Gap 8, BUN 33 H, Creatinine 1.60 H, Est GFR (MDRD) Af Amer 53 L, Est GFR (MDRD) Non-Af 44 L, BUN/Creatinine Ratio 20.6 H, Glucose 209 H, Calcium 10.4 H, Phosphorus 3.9, Magnesium 1.6 02/15/22 18:55: APTT 92.9 H* 02/16/22 01:39: APTT 51.9 H 02/16/22 03:39: WBC 11.5 H, RBC 3.48 L, Hgb 10.8 L, Hct 33.1 L, MCV 95.1 H, MCH 31.0, MCHC 32.6, Plt Count 193, MPV 11.0, Immature Gran % (Auto) 0.300, Neut % (Auto) 77.5 H, Lymph % (Auto) 13.5 L, [place] % (Auto) 7.9, Eos % (Auto) 0.5, Baso % (Auto) 0.3, Absolute Neuts (auto) 8.9 H, Nucleated RBC % 0 02/16/22 03:39: Sodium 140, Potassium 3.6, Chloride 106, Carbon Dioxide 27.0, Anion Gap 7, BUN 31 H, Creatinine 1.52 H, Est GFR (MDRD) Af Amer 56 L, Est GFR (MDRD) Non-Af 46 L, BUN/Creatinine Ratio 20.4 H, Glucose 213 H, Calcium 8.9, Total Bilirubin 0.40 02/16/22 08:00: APTT 56.2 H Rhythm: EKG: ECHO: Stress Test: Cardiac Cath: PCI: CT Surgery: Holter monitor: EPS: PPM: CXR: Chest CT Scan: Physical Exam Narrative Of cardiac telemetry normal sinus Cardiovascular exam; S1-S2 regular Chest exam minimal bilateral basal rales Assessment & Plan Assessment/Plan (1) History of diabetes mellitus: (2) Essential (primary) hypertension: (3) Hyperlipidemia: QUALIFIERS: Hyperlipidemia type: pure hypercholesterolemia Qualified Code(s): E78.00 - Pure hypercholesterolemia, unspecified; E78.00 - Pure hypercholesterolemia, unspecified; E78.00 - Pure hypercholesterolemia, unspecified; E78.0 - Pure hypercholesterolemia (4) Acute respiratory failure with hypoxia: (5) Acute non-ST elevation myocardial infarction (NSTEMI): PLAN: 86-year-old patient with multiple risk factor for CAD Presented with pulm edema and has been on BiPAP and diuretic Improving gradually, have significant elevation of cardiac biomarkers with high sensitive troponin and significantly abnormal echocardiogram with large area of anteroapical and distal septal hypokinesia with ejection fraction in the range of 30-35% Cardiac care plan recommendation; 1. Patient with diabetes, hypertension, hyperlipidemia, CAD with non-ST elevation AR we will continue current treatment. He is off BiPAP and has been tolerating nasal cannula oxygen 2. Patient is status is no intubation and no CPR patient is scheduled for cardiac catheterization tomorrow. Continue to monitor renal function creatinine level improving from 1.6?to 1.52
[2022-02-16 15:39] LABS: Partial Thromboplast Time 51.4 Seconds (24.1-36.2)
[2022-02-16 18:11] LABS: Bedside Glucose 249 mg/dL (74-106)
[2022-02-16] MEDS: HEPARIN/D5w 25,000 UNITS 25,000 UNITS/250 ML IV.SOLN. 8 UNITS CONT INF (18:23)
[2022-02-16] MEDS: Atorvastatin Calcium 10 MG Tablet PO (21:53)
[2022-02-16] MEDS: Latanoprost 0.005% 1 Bottle 1 DRP OPHTHALMIC (21:53)
[2022-02-16 23:04] LABS: Partial Thromboplast Time 59.1 Seconds (24.1-36.2)
[2022-02-17] VITALS (12 sets, daily range): BP systolic 92–105; BP diastolic 57–73; PULSE 80–110; RESP 12–26; TEMP 36.6; O2SAT 91–99
[2022-02-17 03:16] LABS: Bedside Glucose 238 mg/dL (74-106)
[2022-02-17 05:46] LABS: Absolute Lymphocyte Count 1.82 X10^3/uL (0.83-4.51); Absolute Neutrophil Count 7.5 X10^3/uL (2.0-7.7); Basophil# 0.04 X10^3/uL; Basophil% 0.4 % (0-1); Eosinophil# 0.14 X10^3/uL; Eosinophils% 1.4 % (0-5); Hematocrit 30.9 % (40-54); Hemoglobin 10.1 g/dL (13.0-16.5); Lymphocyte # 1.82 X10^3/ul (0.83-4.51); Lymphocyte % 17.7 % (19-41); Mean Corp Hgb Conc 32.7 g/dL (32-36); Mean Corpuscular Hgb 31.1 pg (27.0-32.0); Mean Corpuscular Volume 95.1 fL (80-94); Mean Platelet Vol. 11.1 fl (6.2-12.0); Monocyte# 0.72 X10^3/uL; NRBC Flagged by Analyzer 0 % (0-5); Neutrophil # 7.51 X10^3/uL (2.7-7.7); Neutrophil % 73.2 % (47-70); Platelet Count 169 K/mm3 (150-450); Red Blood Count 3.25 M/mm3 (4.6-6.2); White Blood Count 10.3 K/mm3 (4.4-11.0)
--- NOTE | 2022-02-17 05:59 | EKG12_ITS ---
Test Reason : PRE-OP Blood Pressure : / mmHG Vent. Rate : 090 BPM Atrial Rate : 090 BPM P-R Int : 242 ms QRS Dur : 092 ms QT Int : 388 ms P-R-T Axes : 060 075 -86 degrees QTc Int : 474 ms Sinus rhythm with 1st degree A-V block ST & T wave abnormality, consider inferolateral ischemia Prolonged QT Abnormal ECG When compared with ECG of 15-FEB-2022 03:11, MANUAL COMPARISON REQUIRED, DATA IS UNCONFIRMED Confirmed by CHANDA VELÁSQUEZ MD ([id number]), medical editor LISANDRO DAWSON [id number]) on 02/18/2022 9:40:51 AM Also confirmed by CHANDA VELÁSQUEZ MD ([id number]), medical editor LISANDRO DAWSON ([id number]) on 02/18/2022 9:41:32 AM Referred By: ADI Confirmed By:CHANDA VELÁSQUEZ MD
[2022-02-17 06:02] LABS: Partial Thromboplast Time 57.2 Seconds (24.1-36.2)
[2022-02-17 06:09] LABS: ALB/GLOB Ratio 0.8 RATIO (0.9-2.4); AST(SGOT) 41 U/L (15-37); Alanine Aminotransfer ALT/SGPT 24 U/L (16-61); Albumin, Serum 2.7 g/dL (3.2-5.0); Alkaline Phosphatase 81 U/L (45-117); Anion Gap 7 (5-15); BUN 44 mg/dL (7-18); BUN/Creat Ratio 23.9 RATIO (10-20); Calcium,Total 8.5 mg/dL (8.5-10.1); Chloride 101 mmol/L (98-107); Creatinine, Serum 1.84 mg/dL (0.70-1.30); EST Glomerular Filtration Rate 37 mL/min (>60); Est Glom Filt Rate - Afr Amer 45 mL/min (>60); Globulin 3.5 g/dL (2.2-4.2); Glucose 247 mg/dL (74-106); Magnesium 1.9 mg/dL (1.6-2.6); Protein, Total 6.2 g/dL (6.4-8.2); Sodium Level 136 mmol/L (136-145)
--- NOTE | 2022-02-17 06:32 | PCM.PN.INT ---
Assessment & Plan Assessment/Plan (1) Acute respiratory failure with hypoxia: PLAN: Plan RECOMMENDATIONS: 1. Ischemic evaluation per cardiology recommendations. 2. Continue diuresis as tolerated by hemodynamics and renal function. 3. Wean supplemental oxygen to maintain saturations at or above 90%. 4. Encourage incentive spirometer use and mobilize patient as tolerated. IMPRESSIONS: 1. Acute hypoxemic respiratory failure [place] to be secondary to flash pulmonary edema in the setting of NSTEMI. The patient has been medically optimized with a heparin infusion and scheduled IV diuretics. Respiratory status is improving. Continue to wean supplemental oxygen to maintain saturations at or above 90%. Encourage incentive spirometer use and mobilize patient as tolerated. 2. Non-ST segment elevation [place] Echocardiogram demonstrated an ejection fraction of approximately 30%. There are tentative plans for cardiac catheterization today. Additional recommendations/medical management per cardiology. 3. History of CKD/diabetes mellitus/hypertension Complicates care, management, recovery and prognosis. Continue home medications as indicated. This note was generated with [employer] dictation software. It may contain incorrect words, spelling, and punctuation that were not noted in checking the note before signing. Subjective Subjective The patient was seen and examined at the bedside this morning. Events from the last 24 hours have been reviewed. The patient is currently afebrile, hemodynamically stable and maintaining appropriate oxygen saturations on 3 L/min via nasal cannula. The patient does report a mild degree of shortness of breath. There are plans for cardiac catheterization today. Creatinine has increased to 1.84. Objective Data Objective Data The patient's most recent lab work, culture data and imaging studies have all been personally reviewed. Surface echocardiogram completed on February 15 demonstrated a moderately dilated LV with an ejection fraction of 30 to 35%. Vital Signs: Vital Signs Temp Pulse Resp BP Pulse Ox O2 Del Method O2 Flow Rate 98 F 93 26 H 105/73 97 Bi-pap 3 02/17/22 04:00 02/17/22 05:40 02/17/22 05:40 02/17/22 05:00 02/17/22 05:40 02/17/22 05:00 02/17/22 04:00 FiO2 25 02/17/22 05:40 Oxygen Flow Rate (L/min) 3 Oxygen Delivery Method Bi-pap Weight: 148 lb 12.992 oz Body Mass Index (BMI) 21.1 Intake & Output: Intake and Output for Last 24 Hours 02/15/22 02/16/22 02/17/22 23:59 23:59 23:59 Intake Total 604.08 / 604.08 1450.99 / 1570.99 172.4 / 172.4 Output Total 2300 / 2300 650 / 650 Balance -1695.92 / -1695.92 800.99 / 920.99 172.4 / 172.4 Lab / Micro Data Attestation: I reviewed the patient's lab results. Result Diagrams: 02/17/22 05:35 02/17/22 05:35 Labs: Laboratory Results - last 24 hr 02/16/22 08:00: APTT 56.2 H 02/16/22 11:08: POC Glucose 317 H 02/16/22 15:00: APTT 51.4 H 02/16/22 17:36: POC Glucose 249 H 02/16/22 21:53: POC Glucose 238 H 02/16/22 22:30: APTT 59.1 H 02/17/22 05:35: WBC 10.3, RBC 3.25 L, Hgb 10.1 L, Hct 30.9 L, MCV 95.1 H, MCH 31.1, MCHC 32.7, RDW Std Deviation 45.0 H, RDW Coeff of Digna 13.0, Plt Count 169, MPV 11.1, Immature Gran % (Auto) 0.300, Neut % (Auto) 73.2 H, Lymph % (Auto) 17.7 L, [place] % (Auto) 7.0, Eos % (Auto) 1.4, Baso % (Auto) 0.4, Absolute Neuts (auto) 7.5, Absolute Lymphs (auto) 1.82, Nucleated RBC % 0 02/17/22 05:35: Sodium 136, Potassium 4.0, Chloride 101, Carbon Dioxide 28.0, Anion Gap 7, BUN 44 H, Creatinine 1.84 H, Estim Creat Clear Calc 27.00, Est GFR (MDRD) Af Amer 45 L, Est GFR (MDRD) Non-Af 37 L, BUN/Creatinine Ratio 23.9 H, Glucose 247 H, Calcium 8.5, Magnesium 1.9, Total Bilirubin 0.60, AST 41 H, ALT 24, Alkaline Phosphatase 81, Total Protein 6.2 L, Albumin 2.7 L, Globulin 3.5, Albumin/Globulin Ratio 0.8 L 02/17/22 05:35: APTT 57.2 H Physical Exam Const alert, oriented x3 and no apparent distress General Appearance: cooperative HEENT normocephalic and head/scalp atraumatic General Ear: hearing grossly impaired Eyes PERRL, EOMs intact bilaterally and conjunctivae normal Neck supple General: trachea midline Chest inspection of chest normal Resp normal respiratory effort Auscultation: rales Cardio regular rate and regular rhythm GI normal to inspection, nondistended, normoactive bowel sounds Extremity no clubbing, cyanosis or edema Skin no rashes or lesions noted Neuro oriented x3, CN's II-XII intact bilaterally and moves all extremities Psych cooperative and affect normal Charges/Coding Visit Charges Inpatient E&M: 04512 Subs Hosp L2
--- NOTE | 2022-02-17 07:14 | PCM.PN.HOSP ---
Subjective Subjective Patient scheduled to undergo left heart catheterization. He has been worsening of patient kidney function with creatinine up to 1.83 adjusted Lasix dose. Blood pressure also relatively low. Did decrease dose of lisinopril. Patient did complain of ear ache otoscopic examination did not reveal any evidence of infection Objective Data Objective Data Vital Signs: Vital Signs Temp Pulse Resp BP Pulse Ox O2 Del Method O2 Flow Rate 98 F 93 26 H 105/73 97 Bi-pap 3 02/17/22 04:00 02/17/22 05:40 02/17/22 05:40 02/17/22 05:00 02/17/22 05:40 02/17/22 05:00 02/17/22 04:00 FiO2 25 02/17/22 05:40 Oxygen Flow Rate (L/min) 3 Oxygen Delivery Method Bi-pap Weight: 67.5 kg Body Mass Index (BMI) 21.1 Intake & Output: Intake and Output for Last 24 Hours 02/15/22 02/16/22 02/17/22 23:59 23:59 23:59 Intake Total 604.08 / 604.08 1450.99 / 1570.99 172.4 / 172.4 Output Total 2300 / 2300 650 / 650 150 / 150 Balance -1695.92 / -1695.92 800.99 / 920.99 22.4 / 22.4 Lab / Micro Data Result Diagrams: 02/17/22 05:35 02/17/22 05:35 Labs: Laboratory Results - last 24 hr 02/16/22 08:00: APTT 56.2 H 02/16/22 11:08: POC Glucose 317 H 02/16/22 15:00: APTT 51.4 H 02/16/22 17:36: POC Glucose 249 H 02/16/22 21:53: POC Glucose 238 H 02/16/22 22:30: APTT 59.1 H 02/17/22 05:35: WBC 10.3, RBC 3.25 L, Hgb 10.1 L, Hct 30.9 L, MCV 95.1 H, MCH 31.1, MCHC 32.7, RDW Std Deviation 45.0 H, RDW Coeff of Digna 13.0, Plt Count 169, MPV 11.1, Immature Gran % (Auto) 0.300, Neut % (Auto) 73.2 H, Lymph % (Auto) 17.7 L, [place] % (Auto) 7.0, Eos % (Auto) 1.4, Baso % (Auto) 0.4, Absolute Neuts (auto) 7.5, Absolute Lymphs (auto) 1.82, Nucleated RBC % 0 02/17/22 05:35: Sodium 136, Potassium 4.0, Chloride 101, Carbon Dioxide 28.0, Anion Gap 7, BUN 44 H, Creatinine 1.84 H, Estim Creat Clear Calc 27.00, Est GFR (MDRD) Af Amer 45 L, Est GFR (MDRD) Non-Af 37 L, BUN/Creatinine Ratio 23.9 H, Glucose 247 H, Calcium 8.5, Magnesium 1.9, Total Bilirubin 0.60, AST 41 H, ALT 24, Alkaline Phosphatase 81, Total Protein 6.2 L, Albumin 2.7 L, Globulin 3.5, Albumin/Globulin Ratio 0.8 L 02/17/22 05:35: APTT 57.2 H Physical Exam Narrative GENERAL: cooperative HEENT: Atraumatic; EYES; Anicteric, Normal Conjunctiva NECK; supple, normal thyroid, RESPIRATORY: Diminished to auscultation CARDIOVASCULAR: Regular S1 S2, GI: soft, normoactive bowel sounds, : No Renal angle tenderness; EXTREMITIES: Bipedal edema, no clubbing, MUSCULOSKELETAL: no muscle wasting NEURO: Awake; no lateralizing signs. SKIN: No Rash PSYCH; Flat affect Assessment & Plan Assessment/Plan (1) Acute non-ST elevation myocardial infarction (NSTEMI): (2) Acute respiratory failure with hypoxia: PLAN: Plan Patient is an 86-year-old gentleman admitted with chest pain and shortness of breath. An assessment of acute hypoxic respiratory failure secondary to acute congestive heart failure made. Placed on BiPAP admitted to monitored bed for further management. Subsequent serial cardiac enzymes obtained came back consistent with acute non-STEMI. Placed on heparin. 1. Acute hypoxic respiratory failure ? Secondary to pulmonary edema from acute congestive heart failure. Patient was managed with noninvasive ventilation with BiPAP with consultation placed to electrical accessories i assembler ? 02/17/2022: Patient has been weaned off BiPAP currently on nasal cannula 2. Acute congestive heart failure with reduced ejection fraction -2D echo obtained results? estimated ejection fraction is 30-35 %. Anero-apical and septal Hypokinesia Mild MR. Patient has been managed with diuretics responded to treatment ? 02/17/2022. Adjusted patient diuretic therapy in view of worsening kidney function 3. Acute non-STEMI ? Patient currently being managed with antiplatelet therapy, DEON inhibitor's, atorvastatin and heparin drip. Plan is to initiate beta-blockers once patient is euvolemic. Consultation was placed to cardiology. Patient scheduled to undergo left heart catheterization on 02/17/2022 ? 02/17/2022 scheduled to undergo left heart catheterization 4. Diabetes mellitus type II -patient's oral hypoglycemics held. Placed on long acting insulin, Accu-Cheks a.c. and at bedtime and covered with sliding scale insulin 5. Dyslipidemia -Patient is on statin therapy, continued at home dose 6. Hypertension - Blood pressure controlled, home medications continued with dose adjustment as needed ? 02/17/2022 patient blood pressure on the low side adjusted meds 7. Gout ? Patient is on allopurinol did continue 8. Chronic kidney disease stage IIIa ? Kidney function at baseline ? 02/17/2022 did adjust patient medications (lisinopril and furosemide) in view of worsening kidney function. Subsequent monitoring with repeat BMP is ordered 9. DVT prophylaxis ? On heparin drip CODE STATUS: DNR CCA no intubation Charges/Coding Visit Charges Inpatient E&M: 51534 Subs Hosp L3
[2022-02-17] MEDS: Aspirin E.C. 81 MG Tablet PO (07:36)
[2022-02-17] MEDS: Ipratropium/Albuterol Sulfate 3 ML AMPUL.NEB INHALATION (07:54)
--- NOTE | 2022-02-17 08:10 | NURSING ---
to label printer per bed ,family present
--- NOTE | 2022-02-17 09:01 | CASEMGMT ---
According to the [facility] website, the following are in-network tertiary facilities: [facility], [place], [facility], [facility], [facility], [facility] and . Sheyla COLEMAN CM
--- NOTE | 2022-02-17 10:04 | PN.CARD_ITS ---
Subjective Subjective Patient seen and evaluated. Underwent cardiac catheterization today Objective Data Vital Signs: Vital Signs Temp Pulse Resp BP Pulse Ox O2 Del Method O2 Flow Rate 98 F 109 H 20 H 97/59 L 93 Nasal Cannula 6 02/17/22 04:00 02/17/22 08:00 02/17/22 08:00 02/17/22 08:00 02/17/22 08:00 02/17/22 08:00 02/17/22 08:00 FiO2 25 02/17/22 05:40 Oxygen Flow Rate (L/min) 6 Oxygen Delivery Method Nasal Cannula Weight: 148 lb 12.992 oz Body Mass Index (BMI) 21.1 Intake & Output: Intake and Output for Last 24 Hours 02/15/22 02/16/22 02/17/22 23:59 23:59 23:59 Intake Total 604.08 / 604.08 1450.99 / 1570.99 302.13 / 302.13 Output Total 2300 / 2300 650 / 650 300 / 300 Balance -1695.92 / -1695.92 800.99 / 920.99 2.13 / 2.13 Lab / Micro Data Result Diagrams: 02/17/22 05:35 02/17/22 05:35 Labs: Laboratory Results - last 24 hr 02/16/22 11:08: POC Glucose 317 H 02/16/22 15:00: APTT 51.4 H 02/16/22 17:36: POC Glucose 249 H 02/16/22 21:53: POC Glucose 238 H 02/16/22 22:30: APTT 59.1 H 02/17/22 05:35: WBC 10.3, RBC 3.25 L, Hgb 10.1 L, Hct 30.9 L, MCV 95.1 H, MCH 31.1, MCHC 32.7, RDW Std Deviation 45.0 H, RDW Coeff of Digna 13.0, Plt Count 169, MPV 11.1, Immature Gran % (Auto) 0.300, Neut % (Auto) 73.2 H, Lymph % (Auto) 17.7 L, Logan % (Auto) 7.0, Eos % (Auto) 1.4, Baso % (Auto) 0.4, Absolute Neuts (auto) 7.5, Absolute Lymphs (auto) 1.82, Nucleated RBC % 0 02/17/22 05:35: Sodium 136, Potassium 4.0, Chloride 101, Carbon Dioxide 28.0, Anion Gap 7, BUN 44 H, Creatinine 1.84 H, Estim Creat Clear Calc 27.00, Est GFR (MDRD) Af Amer 45 L, Est GFR (MDRD) Non-Af 37 L, BUN/Creatinine Ratio 23.9 H, Glucose 247 H, Calcium 8.5, Magnesium 1.9, Total Bilirubin 0.60, AST 41 H, ALT 24, Alkaline Phosphatase 81, Total Protein 6.2 L, Albumin 2.7 L, Globulin 3.5, Albumin/Globulin Ratio 0.8 L 02/17/22 05:35: APTT 57.2 H Cardiology Labs/Tests 02/16/22 15:00: APTT 51.4 H 02/16/22 22:30: APTT 59.1 H 02/17/22 05:35: WBC 10.3, RBC 3.25 L, Hgb 10.1 L, Hct 30.9 L, MCV 95.1 H, MCH 31.1, MCHC 32.7, Plt Count 169, MPV 11.1, Immature Gran % (Auto) 0.300, Neut % (Auto) 73.2 H, Lymph % (Auto) 17.7 L, Logan % (Auto) 7.0, Eos % (Auto) 1.4, Baso % (Auto) 0.4, Absolute Neuts (auto) 7.5, Nucleated RBC % 0 02/17/22 05:35: Sodium 136, Potassium 4.0, Chloride 101, Carbon Dioxide 28.0, Anion Gap 7, BUN 44 H, Creatinine 1.84 H, Est GFR (MDRD) Af Amer 45 L, Est GFR (MDRD) Non-Af 37 L, BUN/Creatinine Ratio 23.9 H, Glucose 247 H, Calcium 8.5, Magnesium 1.9, Total Bilirubin 0.60 02/17/22 05:35: APTT 57.2 H Rhythm: EKG: ECHO: Stress Test: Cardiac Cath: PCI: CT Surgery: Holter monitor: EPS: PPM: CXR: Chest CT Scan: Physical Exam Const alert, oriented x3 and no apparent distress General Appearance: cooperative HEENT hearing grossly normal bilaterally Head and Scalp: atraumatic Eyes EOMs intact bilaterally Neck General: normal visual inspection Chest inspection of chest normal and palpation of chest normal Resp normal respiratory effort Auscultation: clear to auscultation bilaterally Cardio regular rate, regular rhythm, S1 normal heart sound and S2 normal heart sound Jugular Venous Distention: JVD GI normal to inspection, nondistended, normoactive bowel sounds Extremity normal capillary refill and no pedal edema Peripheral Pulses: Yes pulses 2+ throughout and femoral pulses present Skin no rashes or lesions noted Neuro oriented x3 and CN's II-XII intact bilaterally Psych Appearance: grossly normal and appropriate Assessment & Plan Assessment/Plan (1) Acute non-ST elevation myocardial infarction (NSTEMI): PLAN: He does have a history of a non-ST elevation myocardial infarction. His estimated ejection fraction is 30 to 35%. He underwent cardiac catheterization today which demonstrated the following: Left main coronary artery with calcification and distal 50% stenosis Left anterior descending artery which is severely diseased in the proximal segment tortuous with up to 99% stenosis in distal segment which is patent Left circumflex artery with proximal 90% stenosis noted with [id number] collaterals feeding the right coronary artery Dominant right coronary artery which is totally occluded in the proximal segment Based on the above angiographic findings as well as the hemodynamic status with his heart rate at 115 and his blood pressure at 79 systolic it was felt that he was in cardiogenic shock and an intra-aortic balloon pump was placed. His respiratory status was stable. He is on a nonrebreather mask. The plan is to transport him to a tertiary care facility for evaluation for emergency bypass surgery. (2) Essential (primary) hypertension: PLAN: This appears to be stable at this time. (3) Left ventricular dysfunction: PLAN: He does have left ventricular systolic dysfunction. The plan at this time would be to continue with a intra-aortic balloon pump and then post surgery we will see about beta-ray ARB or DEON inhibitor and/or Farxiga. Thank you for allowing me to participate in the care of your patient. Please don't hesitate to call if any issues arise.
--- NOTE | 2022-02-17 10:21 | CL.D_ITS ---
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 RECOMMENDATIONS Surgery consult for coronary revascularization DESCRIPTION OF PROCEDURE The patient arrived to the procedure lab. The risks and benefits of the procedure as well as a full d escription of our services here and current unavailability of surgical backup were fully explained to the patient and/or their significant other prior to the catheterization. The Timeout was completed, verifying the correct patient and procedure. The patient's procedural site was prepped and draped in the usual fashion. Local anesthetic was given subcutaneously to right radial region with Lidocaine 2% . Local anesthetic was given subcutaneously to right groin region with Lidocaine 2%. Local anesthetic was given subcutaneously to left groin region with Lidocaine 2%. Using a modified Seldinger techniqu e, arterial access was obtained via the left femoral artery, with Micropuncture set Left Coronary Ar elicia selective angiography was performed in multiple views using a 5 Fr. JL4 catheter. Right Coronary Artery selective angiography was then performed in multiple views using a 5 Fr. 3DRC (Kam[place]) catheter.Arrow 40cc 7.5F UltraFlex IABP - Qty: 1 Each Part #: [id number], A 40cc IABP catheter was inserted into the right femoral artery, IABP settings: 1:1, IABP Augumented BP: 125 mmHg Systemic BP: 126 mmHg, The IABP catheter and sheath were secured in placeThe arterial sheath was sutured in p lace with heparinized normal saline under pressure to the left groin. Balloon pump remains in the rig ht groin. CORONARY ANGIOGRAPHY DOMINANCE: Right Dominant LEFT HEART ASSESSMENT Left Ventricular Ejection Fraction: by Echo 30-35 % Anterior Hypokinesis - Severe Depressed Left Ventricular systolic function Cardiogenic shock and intra-aortic balloon pump placed LEFT MAIN: Mild calcification, Mild luminal irregularities less than 30% LEFT ANTERIOR DESCENDING ARTERY: Complex proximal stenosis in multiple areas up to 90% with mild dist al disease CIRCUMFLEX ARTERY: Proximal 90% stenosis and distal left to right collaterals RIGHT CORONARY ARTERY: MID RCA: is occluded COLLATERAL FLOW: Collateral flow from Left to Right COMPLICATIONS No Complications PROCEDURE MEDICATIONS Fentanyl 25 mcg IV Oxygen: 6 L/min via nasal cannula Oxygen: 15 L/min via non-rebreather mask Heparin 25,000u / 250ml D5W @ 800 u/hr IV started 02/17/2022 09:04:35 Heparin 5000 unit(s) IV 02/17/2022 09:12:24 Lasix 40 mg IV 02/17/2022 09:13:36 IV Fluids: .9 NaCl IV started @ open ml/hr 02/17/2022 08:44:42 IV Fluids: .9 NaCl discontinued 02/17/2022 08:53:31 SUMMARY OF HEMODYNAMIC DATA Time AIR REST ECG 08:31:44 AO 68/44 (54) SA 08:50:57 AO 78/50 (62) 08:51:39 Signed By Anthony Mcdonough MD On 02/17/2022 10:20:50 AM Anthony Mcdonough MD
[2022-02-17 11:30] LABS: Bedside Glucose 264 mg/dL (74-106)
--- NOTE | 2022-02-17 12:30 | NURSING ---
pt transferred to [facility] per [facility] via air,
--- NOTE | 2022-02-17 13:42 | DS.PCM_ITS ---
Providers Date of Admission: 02/15/22 Date of Discharge: 02/17/22 Primary Care Physician: Dr. Ryder Jessica MD Consultations 02/15/22 06:39 Consult: Cardiology Routine Consulting Provider: Leola Burnett Reason for Consult: NSTEMI. heart failure EMERGENT Consult: No Notified: Yes Date Notified: 02/15/22 Time Notified: 08:33 Method of Notification: Text Consult: Pediatric Urologist / Pulmonary Medicine Routine Consulting Provider: Pulmonary Medicine [facility] Reason for Consult: Hypotension, respiratory failure EMERGENT Consult: No Notified: Yes Date Notified: 02/15/22 Time Notified: 05:43 Method of Notification: Verbal Reason For Visit: NSTEMI Diagnosis Discharge Diagnosis (1) Acute non-ST elevation myocardial infarction (NSTEMI): Status: Acute Code(s): I21.4 - Non-ST elevation (NSTEMI) myocardial infarction (2) Essential (primary) hypertension: Status: Chronic Code(s): I10 - Essential (primary) hypertension (3) Left ventricular dysfunction: Status: Acute Code(s): I51.9 - Heart disease, unspecified Plan Patient is an 86-year-old gentleman admitted with chest pain and shortness of breath. An assessment of acute hypoxic respiratory failure secondary to acute congestive heart failure made. Placed on BiPAP admitted to monitored bed for further management. Subsequent serial cardiac enzymes obtained came back consistent with acute non-STEMI. Placed on heparin. 1. Acute hypoxic respiratory failure ? Secondary to pulmonary edema from acute congestive heart failure. Patient was managed with noninvasive ventilation with BiPAP with consultation placed to sole rougher ? 02/17/2022: Patient has been weaned off BiPAP currently on nasal cannula 2. Acute congestive heart failure with reduced ejection fraction -2D echo obtained results? estimated ejection fraction is 30-35 %. Anero-apical and septal Hypokinesia Mild MR. Patient has been managed with diuretics responded to treatment ? 02/17/2022. Adjusted patient diuretic therapy in view of worsening kidney function 3. Acute non-STEMI ? Patient currently being managed with antiplatelet therapy, DEAWYNE inhibitor's, atorvastatin and heparin drip. Plan is to initiate beta-blockers once patient is euvolemic. Consultation was placed to cardiology. Patient scheduled to undergo left heart catheterization on 02/17/2022 ? 02/17/2022 scheduled to undergo left heart catheterization 4. Diabetes mellitus type II -patient's oral hypoglycemics held. Placed on long acting insulin, Accu-Cheks a.c. and at bedtime and covered with sliding scale insulin 5. Dyslipidemia -Patient is on statin therapy, continued at home dose 6. Hypertension - Blood pressure controlled, home medications continued with dose adjustment as needed ? 02/17/2022 patient blood pressure on the low side adjusted meds 7. Gout ? Patient is on allopurinol did continue 8. Chronic kidney disease stage IIIa ? Kidney function at baseline ? 02/17/2022 did adjust patient medications (lisinopril and furosemide) in view of worsening kidney function. Subsequent monitoring with repeat BMP is ordered 9. DVT prophylaxis ? On heparin drip CODE STATUS: DNR CCA no intubation Medications at Discharge Home Medications allopurinol 300 mg tablet 300 mg PO QDAY 06/29/17 aspirin 81 mg tablet,delayed release (Adult Aspirin Regimen) 81 mg PO QDAY 06/29/17 dicyclomine 10 mg capsule 10 mg PO Q8H PRN Pain 06/29/17 tamsulosin 0.4 mg capsule (Flomax) 0.4 mg PO QDAY 06/29/17 sitagliptin 50 mg-metformin 500 mg tablet (Janumet) 1 tab PO BID 06/29/18 finasteride 5 mg tablet 5 mg PO DAILY 08/10/20 latanoprost 0.005 % eye drops 1 drp ophthalmic (eye) DAILY 08/10/20 simvastatin 40 mg tablet 20 mg PO QHS 08/06/21 furosemide 20 mg tablet 20 mg PO DAILY@1000 #0 tabs 02/17/22 lisinopril 2.5 mg tablet 2.5 mg PO DAILY #0 tabs 02/17/22 Hospital Course Summary of Care Provided Minutes Spent on Discharge: 45 Hospital Course: Patient is an 86-year-old gentleman admitted with chest pain and shortness of breath. An assessment of acute hypoxic respiratory failure secondary to acute congestive heart failure made. Placed on BiPAP admitted to monitored bed for further management. Subsequent serial cardiac enzymes obtained came back consistent with acute non-STEMI. Placed on heparin. 1. Acute hypoxic respiratory failure ? Secondary to pulmonary edema from acute congestive heart failure. Patient was managed with noninvasive ventilation with BiPAP with consultation placed to sole rougher ? 02/17/2022: Patient has been weaned off BiPAP currently on nasal cannula 2. Acute congestive heart failure with reduced ejection fraction -2D echo obtained results? estimated ejection fraction is 30-35 %. Anero-apical and septal Hypokinesia Mild MR. Patient has been managed with diuretics responded to treatment ? 02/17/2022. Adjusted patient diuretic therapy in view of worsening kidney function 3. Acute non-STEMI ? Patient currently being managed with antiplatelet therapy, DEWAYNE inhibitor's, atorvastatin and heparin drip. Plan is to initiate beta-blockers once patient is euvolemic. Consultation was placed to cardiology. Patient scheduled to undergo left heart catheterization on 02/17/2022 ? 02/17/2022 scheduled to undergo left heart catheterization Results of left heart catheterization as below CORONARY ANGIOGRAPHY DOMINANCE:? Right Dominant LEFT HEART ASSESSMENT Left Ventricular Ejection Fraction: by Echo 30-35 % Anterior Hypokinesis - Severe Depressed Left Ventricular systolic function Cardiogenic shock and intra-aortic balloon pump placed LEFT MAIN: Mild calcification, Mild luminal irregularities less than 30% LEFT ANTERIOR DESCENDING ARTERY: Complex proximal stenosis in multiple areas up to 90% with mild distal disease CIRCUMFLEX ARTERY: Proximal 90% stenosis and distal left to right collaterals RIGHT CORONARY ARTERY: MID RCA: is occluded COLLATERAL FLOW: Collateral flow from Left to Right Cardiology did arrange for patient to be transferred to tertiary care center [facility] for intervention ([facility]) 4. Diabetes mellitus type II -patient's oral hypoglycemics held. Placed on long acting insulin, Accu-Cheks a.c. and at bedtime and covered with sliding scale insulin 5. Dyslipidemia -Patient is on statin therapy, continued at home dose 6. Hypertension - Blood pressure controlled, home medications continued with dose adjustment as needed ? 02/17/2022 patient blood pressure on the low side adjusted meds 7. Gout ? Patient is on allopurinol did continue 8. Chronic kidney disease stage IIIa ? Kidney function at baseline ? 02/17/2022 did adjust patient medications (lisinopril and furosemide) in view of worsening kidney function. Subsequent monitoring with repeat BMP is ordered 9. DVT prophylaxis ? On heparin drip CODE STATUS: DNR CCA no intubation Physical Exam Narrative GENERAL: cooperative HEENT: Atraumatic; EYES; Anicteric, Normal Conjunctiva NECK; supple, normal thyroid, RESPIRATORY: Diminished to auscultation CARDIOVASCULAR: Regular S1 S2, GI: soft, normoactive bowel sounds, : No Renal angle tenderness; EXTREMITIES: Bipedal edema, no clubbing, MUSCULOSKELETAL: no muscle wasting NEURO: Awake; no lateralizing signs. SKIN: No Rash PSYCH; Flat affect Weight / BMI Weight Weight: 67.5 kg Body Mass Index (BMI) 21.1 ABG / Lab / Microbiology Data Result Diagrams: 02/17/22 05:35 02/17/22 05:35 Laboratory: Laboratory Results - last 24 hr 02/16/22 15:00: APTT 51.4 H 02/16/22 17:36: POC Glucose 249 H 02/16/22 21:53: POC Glucose 238 H 02/16/22 22:30: APTT 59.1 H 02/17/22 05:35: WBC 10.3, RBC 3.25 L, Hgb 10.1 L, Hct 30.9 L, MCV 95.1 H, MCH 31.1, MCHC 32.7, RDW Std Deviation 45.0 H, RDW Coeff of Digna 13.0, Plt Count 169, MPV 11.1, Immature Gran % (Auto) 0.300, Neut % (Auto) 73.2 H, Lymph % (Auto) 17 .7 L, Borden % (Auto) 7.0, Eos % (Auto) 1.4, Baso % (Auto) 0.4, Absolute Neuts (auto) 7.5, Absolute Lymphs (auto) 1.82, Nucleated RBC % 0 02/17/22 05:35: Sodium 136, Potassium 4.0, Chloride 101, Carbon Dioxide 28.0, Anion Gap 7, BUN 44 H, Creatinine 1.84 H, Estim Creat Clear Calc 27.00, Est GFR (MDRD) Af Amer 45 L, Est GFR (MDRD) Non-Af 37 L, BUN/Creatinine Ratio 23.9 H, Glucose 247 H, Calcium 8.5, Magnesium 1.9, Total Bilirubin 0.60, AST 41 H, ALT 24, Alkaline Phosphatase 81, Total Protein 6.2 L, Albumin 2.7 L, Globulin 3.5, Albumin/Globulin Ratio 0.8 L 02/17/22 05:35: APTT 57.2 H 02/17/22 06:49: POC Glucose 264 H Meaningful Use Info Meaningful Use Diagnoses (Choose all that apply): AMI AMI/Post PCI/Angioplasty Aspirin given w/in 24hrs of arrival?: Yes ASA at discharge?: Yes Antiplatelet Therapy at Discharge:: Yes Statins at discharge?: Yes Dewayne/ARB at discharge?: Yes Beta Chasity at discharge?: No Reason Beta Chasity not ordered:: Hypotension Done w/ Acute VA measure.: Yes Documented LVEF (%): 35 Discharge Plan Admission Admit Date/Time: 02/15/22 05:36 Attending Provider: Alex Gillis Primary Care Provider: Ryder Jessica Consulting Providers: Olga Bob ; Johann Miller ; Arsen Hawthorne ; Opal Juarez NP ; Leola Burnett ; Tucker Castrejon Discharge Orders/Prescriptions Prescriptions: New furosemide 20 mg Tablet 20 mg PO DAILY@1000 Qty: 0 0RF lisinopril 2.5 mg Tablet 2.5 mg PO DAILY Qty: 0 0RF Continued aspirin [Adult Aspirin Regimen] 81 mg tablet,delayed release (DR/EC) 81 mg PO QDAY dicyclomine 10 mg capsule 10 mg PO Q8H PRN (Reason: Pain) tamsulosin [Flomax] 0.4 mg capsule,extended release 24hr 0.4 mg PO QDAY allopurinol 300 mg tablet 300 mg PO QDAY Janumet 50-500 mg tablet 1 tab PO BID finasteride 5 mg tablet 5 mg PO DAILY latanoprost 0.005 % drops 1 drp OPHTHALMIC DAILY simvastatin 40 mg tablet 20 mg PO QHS Discontinued atenolol 50 mg tablet 50 mg PO QDAY amlodipine 10 mg tablet 10 mg PO DAILY Qty: 90 3RF Referrals / Follow Up: Ryder Jessica MD [Primary Care Provider] - Within 1 Week (Following discharge from [facility]) Disposition Disposition (needs filled in before D/C Order can be placed): Acute Care Hospital Charges/Coding Visit Charges Inpatient E&M: 90563 Disch Hosp
== END 2022-02-17 12:30 | disposition short-term general hospital (02) | DRG 270 ==
LOC: ED 05:33 → ICU 05:53
PROVIDERS: Internal Medicine; Internal Medicine Interventional Cardiology; Admitting Provider Internal Medicine; Emergency Provider Emergency Medicine; PCP Family Medicine; Visit Provider Internal Medicine
DX: I21.4 Non-ST elevation (NSTEMI) myocardial infarction (principal); J96.01 Acute respiratory failure with hypoxia; R57.0 Cardiogenic shock; I50.21 Acute systolic (congestive) heart failure; J81.0 Acute pulmonary edema; I13.0 Hypertensive heart and chronic kidney disease with heart failure and stage 1 through stage 4 chronic kidney disease, or unspecified chronic kidney disease; E11.22 Type 2 diabetes mellitus with diabetic chronic kidney disease; N18.31 Chronic kidney disease, stage 3a; I25.10 Atherosclerotic heart disease of native coronary artery without angina pectoris; E78.00 Pure hypercholesterolemia, unspecified; M10.9 Gout, unspecified; Z66 Do not resuscitate; N40.0 Benign prostatic hyperplasia without lower urinary tract symptoms; Z79.82 Long term (current) use of aspirin; Z79.899 Other long term (current) drug therapy
CPT/HCPCS: 33967; 71275; 80048; 80053; 82962; 83735; 83880; 84100; 84484; 85025; 85610; 85730; 93005; 93306; 93454; 94002; 94003; 94640; 94762; 99152; 99153; 99251; 99285; C1773; J7050; Q9957; Q9967; A4216; C1757; C1769; C1894; C8929; G0463; J1940

== ENCOUNTER → 2022-02-27 | Outpatient (CLI) | payer MEDICARE, SELFPAY ==
[2022-02-27 15:50] LABS: Anion Gap 9 (5-15); BUN 33 mg/dL (7-18); BUN/Creat Ratio 17.8 RATIO (10-20); Calcium,Total 8.8 mg/dL (8.5-10.1); Chloride 106 mmol/L (98-107); Creatinine, Serum 1.85 mg/dL (0.70-1.30); EST Glomerular Filtration Rate 37 mL/min (>60); Est Glom Filt Rate - Afr Amer 45 mL/min (>60); Glucose 211 mg/dL (74-106); Potassium 3.2 mmol/L (3.5-5.1); Sodium Level 138 mmol/L (136-145)
== END | disposition home or self-care (01) ==
LOC: LAB 14:28
PROVIDERS: PCP Family Medicine; Visit Provider Internal Medicine Cardiovascular Disease
DX: I50.21 Acute systolic (congestive) heart failure (principal); I25.5 Ischemic cardiomyopathy
CPT/HCPCS: 36415; 80048

== ENCOUNTER → 2022-06-30 | Outpatient (CLI) | payer MEDICARE, SELFPAY ==
[2022-06-30 15:49] LABS: ALB/GLOB Ratio 0.8 RATIO (0.9-2.4); AST(SGOT) 29 U/L (15-37); Alanine Aminotransfer ALT/SGPT 41 U/L (16-61); Albumin, Serum 3.5 g/dL (3.2-5.0); Alkaline Phosphatase 115 U/L (45-117); Anion Gap 7 (5-15); BUN 55 mg/dL (7-18); BUN/Creat Ratio 27.8 RATIO (10-20); Calcium,Total 9.4 mg/dL (8.5-10.1); Chloride 95 mmol/L (98-107); Creatinine, Serum 1.98 mg/dL (0.70-1.30); EST Glomerular Filtration Rate 34 mL/min (>60); Est Glom Filt Rate - Afr Amer 41 mL/min (>60); Globulin 4.3 g/dL (2.2-4.2); Glucose 368 mg/dL (74-106); Potassium 3.5 mmol/L (3.5-5.1); Protein, Total 7.8 g/dL (6.4-8.2); Sodium Level 131 mmol/L (136-145); Uric Acid 5.1 mg/dL (3.5-7.2)
== END | disposition home or self-care (01) ==
LOC: BFHLAB 13:33
PROVIDERS: PCP Family Medicine; Visit Provider Family Medicine
DX: E11.22 Type 2 diabetes mellitus with diabetic chronic kidney disease (principal); N18.32 Chronic kidney disease, stage 3b; M10.9 Gout, unspecified
CPT/HCPCS: 36415; 80053; 84550

== ENCOUNTER → 2022-08-20 | Outpatient (CLI) | payer MEDICARE, SELFPAY ==
--- NOTE | 2022-08-20 08:57 | ECHOD_ITS ---
Reason For Study: CAD/ASHD Procedure This was a 2D Doppler, Color Flow transthoracic echocardiogram. Exam performed in department. Left Ventricle Normal LV size. Left ventricular systolic function is normal. The estimated ejection fraction is 55 %. No regional wall motion abnormalities noted. Right Ventricle Normal RV size. Normal systolic function. Atria Normal left atrium. Normal right atrium. Mitral Valve Bileaflet diffuse mitral valve thickening. Mild-Moderate (1-2+) eccentric mitral valve insufficiency. Tricuspid Valve Normal tricuspid valve. Mild (1+) tricuspid valve insufficiency. Pulmonary artery systolic pressure is 23 mmHg. Aortic Valve Trisinus/trileaflet aortic valve. Moderate focal aortic valve thickening. Pulmonic Valve Normal pulmonic valve. Great Vessels Normal aortic root. The pulmonary artery is normal size. Normal inferior vena cava. Pericardium/Pleural No pericardial effusion. MMode/2D Measurements & Calculations LVIDd: 3.9 cm IVSd: 1.1 cm Ao root diam: 3.2 cm LVIDs: 2.8 cm LVPWd: 0.87 cm RVDd: 3.4 cm FS: 28.3 % LAV(MOD-sp4): 31.4 ml LVAd ap4: 23.3 cm2 SV(MOD-sp4): 39.1 ml LVLd ap4: 6.5 cm EDV(MOD-sp4): 66.7 ml EDV(sp4-el): 71.0 ml LVAs ap4: 13.5 cm2 LVLs ap4: 5.5 cm ESV(MOD-sp4): 27.7 ml ESV(sp4-el): 28.1 ml EF(MOD-sp4): 58.5 % EF(sp4-el): 60.4 % SV(sp4-el): 42.9 ml LA A4 area: 13.2 cm2 LA dimension(2D): 3.8 cm RA A4 area: 13.4 cm2 Doppler Measurements & Calculations MV E max maryam: 105.9 cm/sec Ao V2 max: 111.5 cm/sec LV V1 max: 67.7 cm/sec Ao max P.0 mmHg LV V1 max P.9 mmHg Ao V2 mean: 75.6 cm/sec LV V1 mean P.96 mmHg Ao mean P.6 mmHg LV V1 mean: 45.3 cm/sec Ao V2 VTI: 25.6 cm LV V1 VTI: 15.5 cm AV (velocity ratio): 0.60 PA V2 max: 86.2 cm/sec TR max maryam: 220.0 cm/sec PA V2 mean: 59.4 cm/sec TR max P.4 mmHg ECHO/Echo Complete Interpretation Summary Normal LV size. Left ventricular systolic function is normal. The estimated ejection fraction is 55 %. Mild-Moderate (1-2+) eccentric mitral valve insufficiency. Compared to previous study, the left ventricular systolic function has improved .. Ordering Physician: Anthony Mcdonough Referring Physician: Anthony Mcdonough Performed By: Kathleen Lopez RCS
== END | disposition home or self-care (01) ==
LOC: CVS 08:57
PROVIDERS: PCP Family Medicine; Referring Provider Internal Medicine Cardiovascular Disease; Visit Provider Internal Medicine Cardiovascular Disease
DX: I51.9 Heart disease, unspecified (principal); I25.10 Atherosclerotic heart disease of native coronary artery without angina pectoris
CPT/HCPCS: 93306

== ENCOUNTER → 2022-09-30 | Outpatient (CLI) | payer MEDICARE, SELFPAY ==
[2022-09-30 12:42] LABS: Anion Gap 8 (5-15); BUN 50 mg/dL (7-18); BUN/Creat Ratio 28.2 RATIO (10-20); Calcium,Total 9.3 mg/dL (8.5-10.1); Chloride 105 mmol/L (98-107); Cholesterol 110 mg/dL (200); Creatinine, Serum 1.77 mg/dL (0.70-1.30); EST Glomerular Filtration Rate 39 mL/min (>60); Est Glom Filt Rate - Afr Amer 47 mL/min (>60); Glucose 162 mg/dL (74-106); High Density Lipoprotein 37 mg/dL; Sodium Level 139 mmol/L (136-145); Triglycerides 101 mg/dL; Very Low Density Lipoprotein 20 mg/dL (5-40)
[2022-09-30 13:04] LABS: Absolute Lymphocyte Count 1.41 X10^3/uL (0.83-4.51); Absolute Neutrophil Count 5.7 X10^3/uL (2.0-7.7); Basophil# 0.07 X10^3/uL; Basophil% 0.9 % (0-1); Eosinophil# 0.26 X10^3/uL; Eosinophils% 3.2 % (0-5); Hematocrit 39.3 % (40-54); Hemoglobin 12.5 g/dL (13.0-16.5); Lymphocyte # 1.41 X10^3/ul (0.83-4.51); Lymphocyte % 17.3 % (19-41); Mean Corp Hgb Conc 31.8 g/dL (32-36); Mean Corpuscular Hgb 30.6 pg (27.0-32.0); Mean Corpuscular Volume 96.3 fL (80-94); Mean Platelet Vol. 11.6 fl (6.2-12.0); Monocyte# 0.56 X10^3/uL; Monocyte% 6.9 % (0-10); NRBC Flagged by Analyzer 0 % (0-5); Neutrophil # 5.69 X10^3/uL (2.7-7.7); Neutrophil % 69.5 % (47-70); Platelet Count 229 K/mm3 (150-450); RBC Distribution Width CV 13.4 % (11.6-14.6); RBC Distribution Width SD 47.6 fl (35.1-43.9); Red Blood Count 4.08 M/mm3 (4.6-6.2); White Blood Count 8.2 K/mm3 (4.4-11.0)
== END | disposition home or self-care (01) ==
LOC: BFHLAB 09:01
PROVIDERS: PCP Family Medicine; Referring Provider Family Medicine; Visit Provider Family Medicine
DX: N18.32 Chronic kidney disease, stage 3b (principal); I25.10 Atherosclerotic heart disease of native coronary artery without angina pectoris
CPT/HCPCS: 36415; 80048; 80061; 83970; 85025

== ENCOUNTER → 2023-10-22 | Outpatient (CLI) | payer MEDICARE, SELFPAY ==
[2023-10-22 11:06] LABS: Absolute Lymphocyte Count 1.55 X10^3/uL (0.83-4.51); Absolute Neutrophil Count 5.2 X10^3/uL (2.0-7.7); Basophil# 0.05 X10^3/uL; Basophil% 0.6 % (0-1); Eosinophil# 0.51 X10^3/uL; Eosinophils% 6.5 % (0-5); Hematocrit 35.4 % (40-54); Lymphocyte # 1.55 X10^3/ul (0.83-4.51); Lymphocyte % 19.6 % (19-41); Mean Corp Hgb Conc 31.1 g/dL (32-36); Mean Corpuscular Hgb 28.6 pg (27.0-32.0); Mean Corpuscular Volume 92.2 fL (80-94); Mean Platelet Vol. 11.9 fl (6.2-12.0); Monocyte# 0.59 X10^3/uL; Monocyte% 7.5 % (0-10); NRBC Flagged by Analyzer 0 % (0-5); Neutrophil # 5.18 X10^3/uL (2.7-7.7); Neutrophil % 65.5 % (47-70); Platelet Count 220 K/mm3 (150-450); RBC Distribution Width CV 14.3 % (11.6-14.6); RBC Distribution Width SD 47.8 fl (35.1-43.9); Red Blood Count 3.84 M/mm3 (4.6-6.2); White Blood Count 7.9 K/mm3 (4.4-11.0)
[2023-10-22 11:21] LABS: PTHIN 217.8 pg/mL (18.4-80.1)
[2023-10-22 11:25] LABS: ALB/GLOB Ratio 0.8 RATIO (0.9-2.4); AST(SGOT) 33 U/L (15-37); Alanine Aminotransfer ALT/SGPT 36 U/L (16-61); Albumin, Serum 3.2 g/dL (3.2-5.0); Alkaline Phosphatase 178 U/L (45-117); Anion Gap 4 (5-15); BUN 35 mg/dL (7-18); BUN/Creat Ratio 20.2 RATIO (10-20); Calcium,Total 8.7 mg/dL (8.5-10.1); Chloride 106 mmol/L (98-107); Cholesterol 120 mg/dL (200); Creatinine, Serum 1.73 mg/dL (0.70-1.30); EST Glomerular Filtration Rate 40 mL/min (>60); Est Glom Filt Rate - Afr Amer 48 mL/min (>60); Globulin 3.9 g/dL (2.2-4.2); Glucose 248 mg/dL (74-106); High Density Lipoprotein 37 mg/dL; Potassium 4.1 mmol/L (3.5-5.1); Protein, Total 7.1 g/dL (6.4-8.2); Sodium Level 136 mmol/L (136-145); Triglycerides 150 mg/dL; Uric Acid 4.3 mg/dL (3.5-7.2); Very Low Density Lipoprotein 30 mg/dL (5-40)
[2023-10-22 12:07] LABS: Microalbumin:Creatinine Ratio 139.3 mg/g CRE (<30 mg/g CRE)
== END | disposition home or self-care (01) ==
LOC: BFHLAB 09:06
PROVIDERS: PCP Family Medicine; Visit Provider Family Medicine
DX: E11.22 Type 2 diabetes mellitus with diabetic chronic kidney disease (principal); N18.32 Chronic kidney disease, stage 3b; I12.9 Hypertensive chronic kidney disease with stage 1 through stage 4 chronic kidney disease, or unspecified chronic kidney disease; M10.9 Gout, unspecified
CPT/HCPCS: 36415; 80053; 80061; 82043; 82570; 83970; 84550; 85025